=== PATIENT | male | born 1985 | race Two or more races ===

== ENCOUNTER 2016-05-18 15:55 | Inpatient (IN) | payer MEDICAID ==
[~2016-05-18] VITALS: Ht 170.2 cm; Wt 96.7 kg
[~2016-05-18 15:55] MED LIST: CHOL1TAB42 PO; DOCU-94 PO; FER325T PO; HYDR-3546 OR; HYDR25T PO; METH750T3 PO; PANC12002 PO
[2016-05-18 17:09] LABS: Basophils # (auto) 0 uL; Basophils % (auto) 0.2 % (0.0-2.0); Eosinophils # (auto) 0.1 uL; Eosinophils % (auto) 0.5 % (0.0-7.0); Hematocrit 49.2 % (41.0-53.0); Hemoglobin 16.8 g/dL (13.5-17.5); Lymphocytes # (auto) 1.5 uL; Lymphocytes % (auto) 12.2 % (10.0-50.0); Mean Corpuscular Hemoglobin 31.1 pg (28.0-32.0); Mean Corpuscular Hgb Conc. 34.2 g/dL (32.0-36.0); Mean Corpuscular Volume 90.9 fL (80.0-100.0); Mean Platelet Volume 9.2 fL (7.4-10.4); Monocytes # (auto) 0.7 uL; Monocytes % (auto) 5.9 % (0.0-12.0); Neutrophils # (auto) 10.2 uL; Neutrophils % (auto) 81.2 % (37.0-80.0); Platelet Count (auto) 312 10^3/uL (140-450); Red Cell Distribution Width 14.7 % (11.6-16.0); White Blood Cell 12.5 10^3/uL (4.4-10.8)
[2016-05-18 17:21] LABS: Albumin 4.3 g/dL (3.4-5.0); BUN/Creatinine Ratio 8.6; Calcium 9.8 mg/dL (8.5-10.1); Potassium 3.9 mmol/L (3.5-5.1); Total Protein 9.6 g/dL (6.4-8.2)
[2016-05-18 22:08] LABS: Urine Bilirubin Negative (Negative); Urine Blood Negative /uL (Negative); Urine Color Yellow (Yellow); Urine Glucose Normal (Normal); Urine Hyaline Cast FEW /lpf (0 - 2); Urine Ketone Negative (Negative); Urine Mucus FEW (None Seen); Urine Nitrite Negative (Negative); Urine RBC 3 /hpf (0 - 3); Urine pH 6.5 (5.0-8.0)
[2016-05-18 22:11] LABS: Amylase 111 U/L (25-115)
[2016-05-18] MEDS ORDERED: ONDANSETRON HCL 4 MG/2 ML VIAL IV ONE (22:15)
[2016-05-18] MEDS ORDERED: HYDROmorphone HCL 2 MG/ML VL IV ONE (22:15)
[2016-05-18] MEDS ORDERED: BANANA BAG KIT 1 EA IV ONE (23:01)
[2016-05-18] MEDS ORDERED: THIAMINE INJ 100 MG, MULTIPLE VITAMIN 10 ML, FOLIC ACID 1 MG, MAGNESIUM SULF SDV 50% 8 ... IV ONE ×5 (23:15)
[2016-05-19] VITALS (38 sets, daily range): BP systolic 97–173; BP diastolic 71–100
[2016-05-19] MEDS ORDERED: HYDROmorphone HCL 2 MG/ML VL IV ONE (00:45)
[2016-05-19] MEDS ORDERED: ONDANSETRON HCL 4 MG/2 ML VIAL IV ONE (00:45)
[2016-05-19] MEDS ORDERED: PROMETHAZINE HCL 25 MG/ML 1ML IV ONE (05:00)
[2016-05-19] MEDS ORDERED: MORPHINE SULFATE 4 MG/ML SYRG IV ONE (05:00)
[2016-05-19] MEDS ORDERED: SODIUM CHLORIDE 0.9% 1,000 ML IV SCH (05:26)
[2016-05-19] MEDS ORDERED: LACTULOSE 20Gm/30ML SOLN PO PRN (05:30)
[2016-05-19] MEDS ORDERED: MORPHINE SULF INJ 2 MG/ML SYRINGE 1ML IV PRN (05:30)
[2016-05-19 05:45] LABS: Basophils # (auto) 0.1 uL; Basophils % (auto) 0.5 % (0.0-2.0); Eosinophils # (auto) 0.2 uL; Eosinophils % (auto) 1.5 % (0.0-7.0); Hematocrit 46.4 % (41.0-53.0); Hemoglobin 15.8 g/dL (13.5-17.5); Lymphocytes # (auto) 1.5 uL; Lymphocytes % (auto) 14.6 % (10.0-50.0); Mean Corpuscular Hemoglobin 30.9 pg (28.0-32.0); Mean Corpuscular Hgb Conc. 33.9 g/dL (32.0-36.0); Mean Platelet Volume 8.5 fL (7.4-10.4); Monocytes # (auto) 0.5 uL; Monocytes % (auto) 5.1 % (0.0-12.0); Neutrophils # (auto) 7.8 uL; Neutrophils % (auto) 78.3 % (37.0-80.0); Platelet Count (auto) 262 10^3/uL (140-450); Red Cell Distribution Width 14.3 % (11.6-16.0); White Blood Cell 9.9 10^3/uL (4.4-10.8)
[2016-05-19 06:04] LABS: Albumin 3.8 g/dL (3.4-5.0); BUN/Creatinine Ratio 11.1; Calcium 8.8 mg/dL (8.5-10.1); Potassium 4.3 mmol/L (3.5-5.1)
[2016-05-19 06:07] LABS: Bilirubin, Total 1.2 mg/dL (0.2-1.0); Total Protein 8.4 g/dL (6.4-8.2)
[2016-05-19] MEDS: cefTRIAXone 1GM/50ML D5W 50 ML IV SCH ×2 (06:10→09:34)
[2016-05-19] MEDS ORDERED: HYDROmorphone HCL 2 MG/ML VL IV PRN (09:00)
[2016-05-19] MEDS: FAMOTIDINE (10MG/ML) 2ML VL IV SCH ×2 (09:34→22:23)
[2016-05-19] MEDS: ONDANSETRON HCL 4 MG/2 ML VIAL IV PRN ×2 (09:36→19:36)
[2016-05-19] MEDS: LACTATED RINGER'S 1,000 ML IV SCH ×2 (10:05→17:47)
[2016-05-19] MEDS: HYDROmorphone HCL 2 MG/ML VL IV PRN ×4 (12:58→22:55)
[2016-05-20] VITALS (10 sets, daily range): BP systolic 122–146; BP diastolic 71–98
[2016-05-20] MEDS: HYDROmorphone HCL 2 MG/ML VL IV PRN ×7 (02:06→22:05)
[2016-05-20] MEDS: LACTATED RINGER'S 1,000 ML IV SCH ×4 (02:23→20:10)
[2016-05-20 06:21] LABS: Basophils # (auto) 0 uL; Basophils % (auto) 0.4 % (0.0-2.0); Eosinophils # (auto) 0.4 uL; Eosinophils % (auto) 4.6 % (0.0-7.0); Hematocrit 40.9 % (41.0-53.0); Hemoglobin 13.9 g/dL (13.5-17.5); Lymphocytes # (auto) 1.9 uL; Lymphocytes % (auto) 20.7 % (10.0-50.0); Mean Corpuscular Hemoglobin 30.8 pg (28.0-32.0); Mean Corpuscular Hgb Conc. 34.1 g/dL (32.0-36.0); Mean Corpuscular Volume 90.5 fL (80.0-100.0); Mean Platelet Volume 8.6 fL (7.4-10.4); Monocytes # (auto) 0.5 uL; Monocytes % (auto) 5.2 % (0.0-12.0); Neutrophils # (auto) 6.5 uL; Neutrophils % (auto) 69.1 % (37.0-80.0); Platelet Count (auto) 198 10^3/uL (140-450); Red Cell Distribution Width 14.2 % (11.6-16.0); White Blood Cell 9.4 10^3/uL (4.4-10.8)
[2016-05-20 06:39] LABS: Albumin 3.4 g/dL (3.4-5.0); Calcium 8.6 mg/dL (8.5-10.1); Potassium 3.7 mmol/L (3.5-5.1)
[2016-05-20 06:45] LABS: BUN/Creatinine Ratio 10.7
[2016-05-20 06:46] LABS: Total Protein 7.5 g/dL (6.4-8.2)
[2016-05-20] MEDS: PANTOPRAZOLE SODIUM 80 MG in SODIUM CHL 0.9% 60 ML IV SCH ×2 (09:20→18:35)
[2016-05-20] MEDS: MUPIROCIN 2% OINT 22GM TOP SCH (20:19)
[2016-05-20] MEDS: ONDANSETRON HCL 4 MG/2 ML VIAL IV PRN (20:41)
[2016-05-21] VITALS (7 sets, daily range): BP systolic 119–159; BP diastolic 54–91
[2016-05-21] MEDS: LACTATED RINGER'S 1,000 ML IV SCH ×3 (01:27→15:08)
[2016-05-21] MEDS: HYDROmorphone HCL 2 MG/ML VL IV PRN ×7 (01:39→21:12)
[2016-05-21] MEDS: PANTOPRAZOLE SODIUM 80 MG in SODIUM CHL 0.9% 60 ML IV SCH ×2 (04:55→15:59)
[2016-05-21] MEDS: ONDANSETRON HCL 4 MG/2 ML VIAL IV PRN ×2 (05:16→21:05)
[2016-05-21 06:30] LABS: Albumin 3.4 g/dL (3.4-5.0); BUN/Creatinine Ratio 9.7; Calcium 8.5 mg/dL (8.5-10.1); Potassium 3.7 mmol/L (3.5-5.1)
[2016-05-21 06:32] LABS: Bilirubin, Total 1.3 mg/dL (0.2-1.0); Total Protein 7.7 g/dL (6.4-8.2)
[2016-05-21] MEDS: MUPIROCIN 2% OINT 22GM TOP SCH ×2 (11:37→21:04)
[2016-05-22] MEDS: LACTATED RINGER'S 1,000 ML IV SCH ×4 (00:55→18:15)
[2016-05-22] MEDS: PANTOPRAZOLE SODIUM 80 MG in SODIUM CHL 0.9% 60 ML IV SCH ×3 (00:56→20:45)
[2016-05-22] MEDS: HYDROmorphone HCL 2 MG/ML VL IV PRN ×7 (01:06→22:44)
[2016-05-22 05:24] VITALS: BP 131/79
[2016-05-22 06:43] LABS: Albumin 3.2 g/dL (3.4-5.0); BUN/Creatinine Ratio 9.5; Bilirubin, Total 0.9 mg/dL (0.2-1.0); Calcium 8.8 mg/dL (8.5-10.1); Potassium 3.6 mmol/L (3.5-5.1); Total Protein 7.7 g/dL (6.4-8.2)
[2016-05-22 07:30] VITALS: BP 119/87
[2016-05-22 09:00] VITALS: BP 129/53
[2016-05-22] MEDS: MUPIROCIN 2% OINT 22GM TOP SCH ×2 (10:46→22:43)
[2016-05-22 13:00] VITALS: BP 127/71
[2016-05-22 16:52] VITALS: BP 136/71
[2016-05-22] MEDS: ONDANSETRON HCL 4 MG/2 ML VIAL IV PRN (20:46)
[2016-05-22 22:00] VITALS: BP 133/89
[2016-05-23] MEDS: LACTATED RINGER'S 1,000 ML IV SCH ×2 (00:55→06:34)
[2016-05-23] MEDS: HYDROmorphone HCL 2 MG/ML VL IV PRN ×3 (02:57→11:52)
[2016-05-23] MEDS: PANTOPRAZOLE SODIUM 80 MG in SODIUM CHL 0.9% 60 ML IV SCH (06:33)
[2016-05-23 07:00] VITALS: BP 119/71
[2016-05-23 07:19] LABS: Albumin 3.4 g/dL (3.4-5.0); Bilirubin, Total 0.6 mg/dL (0.2-1.0); Calcium 9.2 mg/dL (8.5-10.1); Potassium 3.5 mmol/L (3.5-5.1); Total Protein 8.2 g/dL (6.4-8.2)
[2016-05-23 08:00] VITALS: BP 119/71
[2016-05-23] MEDS: MUPIROCIN 2% OINT 22GM TOP SCH (10:41)
[2016-05-23 12:15] VITALS: BP 122/76
[2016-05-23 13:06] VITALS: BP 122/76
[2016-05-23 13:40] VITALS: BP 122/76
== END 2016-05-23 13:40 | disposition home or self-care (01) | DRG 282 ==
LOC: ER 16:01 → TELE 16:02 → ICU WEST 05-19 07:59 → TELE-WESTW 05-20 01:56
PROVIDERS: ADMIT Family Medicine; ATTEND Internal Medicine
DX: K85.20 Alcohol induced acute pancreatitis without necrosis or infection (principal); K76.0 Fatty (change of) liver, not elsewhere classified; F10.10 Alcohol abuse, uncomplicated; K29.20 Alcoholic gastritis without bleeding; E86.0 Dehydration; B95.62 Methicillin resistant Staphylococcus aureus infection as the cause of diseases classified elsewhere; I10 Essential (primary) hypertension; F17.210 Nicotine dependence, cigarettes, uncomplicated; Z83.3 Family history of diabetes mellitus; Z98.890 Other specified postprocedural states; Z87.19 Personal history of other diseases of the digestive system; Z71.41 Alcohol abuse counseling and surveillance of alcoholic
CPT/HCPCS: 36415; 74176; 80053; 80320; 81001; 82150; 83690; 85025; 87081; 96361; 96365; 96366; 96375; 96376; C9113; J0696; J2405; J3490

== ENCOUNTER 2017-05-14 00:24 | Inpatient (IN) | payer MEDICAID ==
[~2017-05-14] VITALS: Ht 170.2 cm; Wt 97.0 kg
[2017-05-14 02:16] LABS: Basophils # (auto) 0.3 uL; Basophils % (auto) 2.2 % (0.0-2.0); Eosinophils # (auto) 0.1 uL; Eosinophils % (auto) 1.1 % (0.0-7.0); Hematocrit 46.8 % (41.0-53.0); Lymphocytes # (auto) 2.4 uL; Lymphocytes % (auto) 21.2 % (10.0-50.0); Mean Corpuscular Hemoglobin 31.4 pg (28.0-32.0); Mean Corpuscular Hgb Conc. 34.2 g/dL (32.0-36.0); Monocytes # (auto) 0.7 uL; Monocytes % (auto) 6.5 % (0.0-12.0); Neutrophils # (auto) 7.8 uL; Nucleated Red Blood Cells % 0.2 %; Platelet Count (auto) 193 10^3/uL (140-450); Red Blood Cells 5.08 10^6/uL (4.5-5.90); White Blood Cell 11.3 10^3/uL (4.4-10.8)
[2017-05-14 02:41] LABS: Albumin 4.1 g/dL (3.4-5.0); BUN/Creatinine Ratio 6.9; Potassium 3.5 mmol/L (3.5-5.1)
[2017-05-14 02:44] LABS: Bilirubin, Total 0.7 mg/dL (0.2-1.0); Total Protein 9.2 g/dL (6.4-8.2)
[2017-05-14 07:00] LABS: Urine Bacteria NONE SEEN /hpf (None Seen); Urine Blood Negative /uL (Negative); Urine Mucus FEW (None Seen); Urine Specific Gravity 1.025 (1.001-1.035); Urine WBC 1 /hpf (0 - 3)
[2017-05-14] MEDS ORDERED: SODIUM CHLORIDE 0.9% 1,000 ML IVB ONE (08:58)
[2017-05-14] MEDS ORDERED: NALBUPHINE HCL 10 MG/1ml INJECTION IV ONE (09:00)
[2017-05-14] MEDS: PROMETHAZINE HCL 25 MG/ML 1ML IV PRN ×3 (09:19→21:30)
[2017-05-14 09:49] LABS: INR 1.05 (0.9-1.15); Partial Thromboplastin Time 29.1 sec (22.64-33.71); Prothrombin Time 11.4 sec (9.37-12.3)
[2017-05-14] MEDS ORDERED: ONDANSETRON HCL 4 MG/2 ML VIAL IV ONE (12:30)
[2017-05-14] MEDS ORDERED: NITROGLYCERIN 0.4 MG SL TAB SL PRN (12:45)
[2017-05-14] MEDS ORDERED: DOCUSATE SOD 100 MG CAP PO PRN (12:45)
[2017-05-14] MEDS ORDERED: ACETAMINOPHEN 325 MG TAB PO PRN (12:45)
[2017-05-14] MEDS ORDERED: TEMAZEPAM 15 MG CAP PO PRN (12:45)
[2017-05-14] MEDS ORDERED: cloNIDine HCL 0.1 MG TAB PO PRN (12:45)
[2017-05-14] MEDS ORDERED: FAMOTIDINE (10MG/ML) 2ML VL IV ONE (12:45)
[2017-05-14] MEDS ORDERED: PANTOPRAZOLE 40 MG/10 ML VIAL IV ONE (12:45)
[2017-05-14] MEDS ORDERED: MORPHINE SULFATE 4 MG/ML SYR/VIAL IV PRN (12:45)
[2017-05-14] MEDS: SODIUM CHLORIDE 0.9% 1,000 ML IV SCH ×3 (12:50→21:30)
[2017-05-14] MEDS ORDERED: cefTRIAXone 1GM/10ml IVPUSH 10 ML IV ONE (13:00)
[2017-05-14] MEDS: MORPHINE SULFATE 4 MG/ML SYR/VIAL IV PRN ×3 (13:02→21:30)
[2017-05-14 13:21] LABS: Amphetamine Screen, Urine NEGATIVE (NEGATIVE); Barbiturate Scree,Urine NEGATIVE (NEGATIVE); Benzodiazephine Screen, Urine NEGATIVE (NEGATIVE); Cannabinoid Screen, Urine NEGATIVE (NEGATIVE); Cocaine Screen, Urine NEGATIVE (NEGATIVE); Opiate Scree,Urine NEGATIVE (NEGATIVE); Phencyclidine Screen, Urine NEGATIVE (NEGATIVE)
[2017-05-14 13:31] LABS: Alcohol, Urine < 3.0 mg/dL (0-5)
[2017-05-14] MEDS: metroNIDAZOLE 500MG/100ML 100 ML IV SCH ×2 (14:15→21:28)
[2017-05-14] MEDS ORDERED: ASCORBIC ACID 500 MG TAB PO SCH (22:00)
[2017-05-14] MEDS: HYDROcodone-ACET 5/325MG TAB PO PRN (23:45)
[2017-05-15] MEDS: MORPHINE SULFATE 4 MG/ML SYR/VIAL IV PRN ×6 (00:45→22:37)
[2017-05-15 04:30] VITALS: BP 143/95
[2017-05-15] MEDS: metroNIDAZOLE 500MG/100ML 100 ML IV SCH (05:04)
[2017-05-15 05:46] LABS: Basophils # (auto) 0 uL; Basophils % (auto) 0.4 % (0.0-2.0); Eosinophils # (auto) 0.3 uL; Eosinophils % (auto) 3.7 % (0.0-7.0); Hematocrit 41.5 % (41.0-53.0); Hemoglobin 14.5 g/dL (13.5-17.5); Lymphocytes # (auto) 1.7 uL; Lymphocytes % (auto) 24.5 % (10.0-50.0); Mean Corpuscular Hemoglobin 32.2 pg (28.0-32.0); Mean Corpuscular Volume 92.2 fL (80.0-100.0); Monocytes # (auto) 0.4 uL; Monocytes % (auto) 5.4 % (0.0-12.0); Neutrophils # (auto) 4.6 uL; Nucleated Red Blood Cells % 0.1 %; Platelet Count (auto) 134 10^3/uL (140-450); Red Cell Distribution Width 14.1 % (11.8-14.3); White Blood Cell 6.9 10^3/uL (4.4-10.8)
[2017-05-15 06:10] LABS: Albumin 3.9 g/dL (3.4-5.0); BUN/Creatinine Ratio 7.1; Bilirubin, Total 1.2 mg/dL (0.2-1.0); Calcium 8.6 mg/dL (8.5-10.1); Potassium 3.6 mmol/L (3.5-5.1); Total Protein 8.6 g/dL (6.4-8.2)
[2017-05-15] MEDS: HYDROcodone-ACET 5/325MG TAB PO PRN ×2 (08:20→20:52)
[2017-05-15 09:00] VITALS: BP 148/76
[2017-05-15] MEDS ORDERED: cefTRIAXone 1GM/10ml IVPUSH 10 ML IV SCH (09:00)
[2017-05-15] MEDS: LACTATED RINGER'S 1,000 ML IV SCH ×3 (09:45→23:05)
[2017-05-15] MEDS: PANTOPRAZOLE 40 MG/10 ML VIAL IV SCH (09:52)
[2017-05-15] MEDS: ONDANSETRON HCL 4 MG/2 ML VIAL IV PRN ×2 (09:53→22:37)
[2017-05-15] MEDS ORDERED: MULTIPLE VITAMIN TAB PO SCH (10:00)
[2017-05-15] MEDS ORDERED: FAMOTIDINE (10MG/ML) 2ML VL IV SCH (10:00)
[2017-05-15] MEDS: ZINC SULFATE 220 MG CAP PO SCH (10:00)
[2017-05-15 13:00] VITALS: BP 151/92
[2017-05-15] MEDS ORDERED: IOHEXOL 300 MG/ML 100ML BOTTLE IJ ONE (16:59)
[2017-05-15 17:00] VITALS: BP 156/100
[2017-05-15 21:32] VITALS: BP 152/95
[2017-05-16] MEDS: MORPHINE SULFATE 4 MG/ML SYR/VIAL IV PRN ×5 (03:00→21:17)
[2017-05-16] MEDS: ONDANSETRON HCL 4 MG/2 ML VIAL IV PRN ×3 (03:01→21:17)
[2017-05-16 04:46] VITALS: BP 147/85
[2017-05-16 05:58] LABS: Basophils # (auto) 0.1 uL; Basophils % (auto) 0.7 % (0.0-2.0); Eosinophils # (auto) 0.2 uL; Eosinophils % (auto) 3.3 % (0.0-7.0); Hemoglobin 13.9 g/dL (13.5-17.5); Lymphocytes # (auto) 2.2 uL; Mean Corpuscular Hemoglobin 32.5 pg (28.0-32.0); Mean Corpuscular Hgb Conc. 34.9 g/dL (32.0-36.0); Monocytes # (auto) 0.4 uL; Monocytes % (auto) 4.9 % (0.0-12.0); Neutrophils # (auto) 4.6 uL; Neutrophils % (auto) 62.1 % (37.0-80.0); Nucleated Red Blood Cells % 0.1 %; Platelet Count (auto) 115 10^3/uL (140-450); Red Blood Cells 4.29 10^6/uL (4.5-5.90); Red Cell Distribution Width 13.8 % (11.8-14.3); White Blood Cell 7.4 10^3/uL (4.4-10.8)
[2017-05-16] MEDS: LACTATED RINGER'S 1,000 ML IV SCH ×3 (06:13→20:35)
[2017-05-16 06:17] LABS: BUN/Creatinine Ratio 6.8; Calcium 8.8 mg/dL (8.5-10.1); Potassium 3.6 mmol/L (3.5-5.1)
[2017-05-16] MEDS: HYDROcodone-ACET 5/325MG TAB PO PRN ×2 (06:19→20:37)
[2017-05-16 08:19] VITALS: BP 145/92
[2017-05-16] MEDS: PANTOPRAZOLE 40 MG/10 ML VIAL IV SCH (10:00)
[2017-05-16] MEDS: ZINC SULFATE 220 MG CAP PO SCH (10:00)
[2017-05-16 12:19] VITALS: BP 138/93
[2017-05-16 12:56] LABS: Amylase 53 U/L (25-115); Lipase 472 U/L (73-393)
[2017-05-16 21:50] VITALS: BP 136/92
[2017-05-17] MEDS: MORPHINE SULFATE 4 MG/ML SYR/VIAL IV PRN ×5 (01:31→22:11)
[2017-05-17] MEDS: ONDANSETRON HCL 4 MG/2 ML VIAL IV PRN ×2 (01:31→05:55)
[2017-05-17 05:25] VITALS: BP 119/76
[2017-05-17] MEDS: LACTATED RINGER'S 1,000 ML IV SCH ×4 (05:47→20:54)
[2017-05-17 06:34] LABS: Potassium 4.1 mmol/L (3.5-5.1)
[2017-05-17 06:41] LABS: Magnesium 2.1 mg/dL (1.6-2.6)
[2017-05-17 08:00] VITALS: BP 104/56
[2017-05-17] MEDS: HYDROcodone-ACET 5/325MG TAB PO PRN ×2 (08:31→20:54)
[2017-05-17 09:00] VITALS: BP 104/56
[2017-05-17] MEDS: ZINC SULFATE 220 MG CAP PO SCH (10:53)
[2017-05-17] MEDS: PANTOPRAZOLE 40 MG/10 ML VIAL IV SCH (10:53)
[2017-05-17 12:08] VITALS: BP 134/90
[2017-05-17 16:02] VITALS: BP 133/84
[2017-05-17 22:00] VITALS: BP 125/84
[2017-05-18] MEDS: MORPHINE SULFATE 4 MG/ML SYR/VIAL IV PRN ×5 (03:03→22:41)
[2017-05-18] MEDS: LACTATED RINGER'S 1,000 ML IV SCH ×3 (04:25→16:13)
[2017-05-18] MEDS: HYDROcodone-ACET 5/325MG TAB PO PRN ×2 (05:25→17:31)
[2017-05-18 05:38] VITALS: BP 128/90
[2017-05-18 08:00] VITALS: BP 128/80
[2017-05-18 08:18] VITALS: BP 128/80
[2017-05-18] MEDS: ZINC SULFATE 220 MG CAP PO SCH (10:52)
[2017-05-18] MEDS: PANTOPRAZOLE 40 MG/10 ML VIAL IV SCH (10:52)
[2017-05-18 11:49] VITALS: BP 138/60
[2017-05-18 16:50] VITALS: BP 108/65
[2017-05-18 21:28] VITALS: BP 128/84
[2017-05-19] MEDS: MORPHINE SULFATE 4 MG/ML SYR/VIAL IV PRN ×3 (03:24→12:10)
[2017-05-19 05:00] VITALS: BP 116/78
[2017-05-19] MEDS: LACTATED RINGER'S 1,000 ML IV SCH (05:02)
[2017-05-19 07:16] LABS: Basophils # (auto) 0 uL; Basophils % (auto) 0.7 % (0.0-2.0); Eosinophils # (auto) 0.2 uL; Eosinophils % (auto) 4.6 % (0.0-7.0); Hematocrit 40.5 % (41.0-53.0); Hemoglobin 13.8 g/dL (13.5-17.5); Lymphocytes # (auto) 1.9 uL; Lymphocytes % (auto) 35.6 % (10.0-50.0); Mean Corpuscular Hemoglobin 31.7 pg (28.0-32.0); Monocytes # (auto) 0.4 uL; Monocytes % (auto) 7.6 % (0.0-12.0); Neutrophils # (auto) 2.7 uL; Neutrophils % (auto) 51.5 % (37.0-80.0); Nucleated Red Blood Cells % 0.1 %; Platelet Count (auto) 126 10^3/uL (140-450); Red Blood Cells 4.35 10^6/uL (4.5-5.90); Red Cell Distribution Width 13.8 % (11.8-14.3); White Blood Cell 5.3 10^3/uL (4.4-10.8)
[2017-05-19] MEDS: HYDROcodone-ACET 5/325MG TAB PO PRN ×3 (07:37→14:10)
[2017-05-19 08:18] VITALS: BP 127/73
[2017-05-19] MEDS: PANTOPRAZOLE 40 MG/10 ML VIAL IV SCH (09:55)
[2017-05-19] MEDS: ZINC SULFATE 220 MG CAP PO SCH (09:55)
[2017-05-19] MEDS ORDERED: PANT40TA2 PO (10:17)
[2017-05-19 11:51] VITALS: BP 128/87
== END 2017-05-19 14:00 | disposition home or self-care (01) | DRG 241 ==
LOC: ER 00:24 → TELE 00:25 → TELE-EAST 19:57
PROVIDERS: ADMIT Internal Medicine; ATTEND Internal Medicine
DX: K29.20 Alcoholic gastritis without bleeding (principal); K85.20 Alcohol induced acute pancreatitis without necrosis or infection; K76.0 Fatty (change of) liver, not elsewhere classified; M87.9 Osteonecrosis, unspecified; K86.0 Alcohol-induced chronic pancreatitis; M87.852 Other osteonecrosis, left femur; M87.851 Other osteonecrosis, right femur; I10 Essential (primary) hypertension; F10.10 Alcohol abuse, uncomplicated; E86.0 Dehydration; F17.210 Nicotine dependence, cigarettes, uncomplicated; Z83.3 Family history of diabetes mellitus; Z71.41 Alcohol abuse counseling and surveillance of alcoholic; Z79.899 Other long term (current) drug therapy; Z90.49 Acquired absence of other specified parts of digestive tract
CPT/HCPCS: 36415; 71046; 74176; 74177; 80048; 80053; 80307; 81001; 82150; 83605; 83690; 83735; 84132; 84443; 85025; 85610; 85730; 87040; 87081; 87086; 93005; 96374; 96375; C9113; J2405; J3490

== ENCOUNTER 2017-08-06 16:49 | Inpatient (IN) | payer MEDICAID, OTHER ==
[~2017-08-06] VITALS: Ht 170.2 cm; Wt 93.8 kg
[~2017-08-06 16:49] MED LIST changes: -CHOL1TAB42 PO; -DOCU-94 PO; -FER325T PO; -HYDR-3546 OR; -HYDR25T PO; -METH750T3 PO; -PANC12002 PO; +PANT40TA2 PO
[2017-08-06 17:43] LABS: Basophils # (auto) 0.1 uL; Basophils % (auto) 0.5 % (0.0-2.0); Eosinophils # (auto) 0 uL; Eosinophils % (auto) 0.2 % (0.0-7.0); Hemoglobin 15.7 g/dL (13.5-17.5); Lymphocytes # (auto) 1.1 uL; Lymphocytes % (auto) 10.3 % (10.0-50.0); Mean Corpuscular Hemoglobin 31.6 pg (28.0-32.0); Mean Corpuscular Hgb Conc. 34.3 g/dL (32.0-36.0); Mean Corpuscular Volume 92.1 fL (80.0-100.0); Monocytes # (auto) 0.4 uL; Monocytes % (auto) 3.4 % (0.0-12.0); Neutrophils # (auto) 9.2 uL; Neutrophils % (auto) 85.6 % (37.0-80.0); Nucleated Red Blood Cells % 0.4 %; Platelet Count (auto) 269 10^3/uL (140-450); Red Blood Cells 4.99 10^6/uL (4.5-5.90); Red Cell Distribution Width 14.7 % (11.8-14.3); White Blood Cell 10.8 10^3/uL (4.4-10.8)
[2017-08-06 18:13] LABS: Albumin 4.4 g/dL (3.4-5.0); BUN/Creatinine Ratio 6.4; Bilirubin, Total 0.6 mg/dL (0.2-1.0); Total Protein 9.4 g/dL (6.4-8.2)
[2017-08-06] MEDS ORDERED: KETOROLAC TROMETH 30 MG/ML 1ML VIAL IV ONE (18:15)
[2017-08-06] MEDS ORDERED: ONDANSETRON HCL 4 MG/2 ML VIAL IV ONE (18:15)
[2017-08-06 18:22] LABS: Urine Bacteria NONE SEEN /hpf (None Seen); Urine Blood Negative /uL (Negative); Urine Specific Gravity 1.016 (1.001-1.035); Urine WBC 1 /hpf (0 - 3)
[2017-08-06] MEDS ORDERED: SODIUM CHLORIDE 0.9% 1,000 ML IV ONE (19:00)
[2017-08-06] MEDS ORDERED: TEMAZEPAM 15 MG CAP PO PRN (21:00)
[2017-08-06] MEDS ORDERED: SODIUM CHLORIDE 0.9% 500 ML IV ONE (21:00)
[2017-08-06] MEDS ORDERED: cloNIDine HCL 0.1 MG TAB PO PRN (21:00)
[2017-08-06] MEDS ORDERED: PANTOPRAZOLE 40 MG/10 ML VIAL IV ONE (21:00)
[2017-08-06] MEDS ORDERED: ACETAMINOPHEN 325 MG TAB PO PRN (21:00)
[2017-08-06] MEDS ORDERED: HYDROcodone-ACET 5/325MG TAB PO PRN (21:00)
[2017-08-06] MEDS: SODIUM CHLORIDE 0.9% 1,000 ML IV SCH (21:32)
[2017-08-06 21:45] VITALS: BP 135/75
[2017-08-06] MEDS: KETOROLAC TROMETH 30 MG/ML 1ML VIAL IV PRN (23:39)
[2017-08-07 04:36] VITALS: BP 127/78
[2017-08-07] MEDS: KETOROLAC TROMETH 30 MG/ML 1ML VIAL IV PRN (06:08)
[2017-08-07] MEDS: SODIUM CHLORIDE 0.9% 1,000 ML IV SCH (06:43)
[2017-08-07 07:23] LABS: Basophils # (auto) 0.1 uL; Basophils % (auto) 0.8 % (0.0-2.0); Eosinophils # (auto) 0.3 uL; Eosinophils % (auto) 3.7 % (0.0-7.0); Hemoglobin 14.2 g/dL (13.5-17.5); Lymphocytes # (auto) 1.7 uL; Lymphocytes % (auto) 22.6 % (10.0-50.0); Mean Corpuscular Hgb Conc. 34.5 g/dL (32.0-36.0); Mean Corpuscular Volume 92.7 fL (80.0-100.0); Monocytes # (auto) 0.5 uL; Monocytes % (auto) 6.1 % (0.0-12.0); Neutrophils # (auto) 5.1 uL; Neutrophils % (auto) 66.8 % (37.0-80.0); Nucleated Red Blood Cells % 0.2 %; Platelet Count (auto) 187 10^3/uL (140-450); Red Blood Cells 4.42 10^6/uL (4.5-5.90); Red Cell Distribution Width 14.4 % (11.8-14.3); White Blood Cell 7.7 10^3/uL (4.4-10.8)
[2017-08-07] MEDS ORDERED: LIDOCAINE 2%HCL (LOCAL ANESTH.) INJ 20ML MDV ONE (07:34)
[2017-08-07 07:51] LABS: Albumin 3.5 g/dL (3.4-5.0); BUN/Creatinine Ratio 11.5; Calcium 8.2 mg/dL (8.5-10.1); Potassium 3.7 mmol/L (3.5-5.1); Total Protein 7.6 g/dL (6.4-8.2)
[2017-08-07] MEDS ORDERED: HYDROmorphone HCL 2 MG/ML VL IV PRN (08:30)
[2017-08-07 09:00] VITALS: BP 122/89
[2017-08-07] MEDS: HYDROcodone-ACET 10/325MG TAB PO PRN ×4 (09:56→23:10)
[2017-08-07] MEDS: PANTOPRAZOLE 40 MG/10 ML VIAL IV SCH (09:56)
[2017-08-07] MEDS: ENOXAPARIN SOD 40 MG/0.4 ML SYRINGE SC SCH (09:56)
[2017-08-07] MEDS: HYDROmorphone HCL 2 MG/ML VL IV PRN ×4 (11:31→21:34)
[2017-08-07 13:00] VITALS: BP 127/89
[2017-08-07] MEDS: ONDANSETRON HCL 4 MG/2 ML VIAL IV PRN ×2 (14:22→21:34)
[2017-08-07 17:00] VITALS: BP 136/80
[2017-08-07] MEDS ORDERED: ONDA4TAB5 PO (17:18)
[2017-08-07] MEDS: LACTATED RINGER'S 1,000 ML IV SCH ×2 (18:30→21:35)
[2017-08-07 20:00] VITALS: BP 142/84
[2017-08-07 22:00] VITALS: BP 142/84
[2017-08-08] MEDS: HYDROmorphone HCL 2 MG/ML VL IV PRN ×6 (01:39→20:23)
[2017-08-08] MEDS: ONDANSETRON HCL 4 MG/2 ML VIAL IV PRN ×5 (01:46→20:24)
[2017-08-08] MEDS: LACTATED RINGER'S 1,000 ML IV SCH ×4 (04:51→21:47)
[2017-08-08 05:30] VITALS: BP 114/89
[2017-08-08] MEDS: HYDROcodone-ACET 10/325MG TAB PO PRN (06:49)
[2017-08-08 07:30] LABS: Potassium 3.6 mmol/L (3.5-5.1)
[2017-08-08 07:34] LABS: Albumin 3.5 g/dL (3.4-5.0); BUN/Creatinine Ratio 6.8; Calcium 8.8 mg/dL (8.5-10.1)
[2017-08-08 07:37] LABS: Bilirubin, Total 1.1 mg/dL (0.2-1.0)
[2017-08-08 08:30] VITALS: BP 137/97
[2017-08-08] MEDS: ENOXAPARIN SOD 40 MG/0.4 ML SYRINGE SC SCH (10:00)
[2017-08-08] MEDS: PANTOPRAZOLE 40 MG/10 ML VIAL IV SCH (11:19)
[2017-08-08 12:44] VITALS: BP 140/92
[2017-08-08 17:19] VITALS: BP 153/86
[2017-08-08 22:00] VITALS: BP 144/78
[2017-08-09] MEDS: HYDROmorphone HCL 2 MG/ML VL IV PRN ×6 (00:36→21:32)
[2017-08-09] MEDS: ONDANSETRON HCL 4 MG/2 ML VIAL IV PRN ×6 (00:37→21:33)
[2017-08-09] MEDS: LACTATED RINGER'S 1,000 ML IV SCH ×3 (03:28→15:34)
[2017-08-09 05:00] VITALS: BP 149/94
[2017-08-09 07:03] LABS: Albumin 3.2 g/dL (3.4-5.0); BUN/Creatinine Ratio 5.7; Calcium 8.8 mg/dL (8.5-10.1); Potassium 3.5 mmol/L (3.5-5.1)
[2017-08-09 07:06] LABS: Bilirubin, Total 1.5 mg/dL (0.2-1.0)
[2017-08-09 08:54] VITALS: BP 136/85
[2017-08-09] MEDS: PANTOPRAZOLE 40 MG/10 ML VIAL IV SCH (09:04)
[2017-08-09] MEDS: ENOXAPARIN SOD 40 MG/0.4 ML SYRINGE SC SCH (09:06)
[2017-08-09 12:54] VITALS: BP 121/73
[2017-08-09] MEDS: HYDROcodone-ACET 10/325MG TAB PO PRN ×2 (15:33→20:09)
[2017-08-09 17:03] VITALS: BP 124/84
[2017-08-09 22:00] VITALS: BP 133/95
[2017-08-10] MEDS: HYDROcodone-ACET 10/325MG TAB PO PRN ×3 (00:13→16:51)
[2017-08-10] MEDS: LACTATED RINGER'S 1,000 ML IV SCH ×4 (02:10→21:42)
[2017-08-10] MEDS: HYDROmorphone HCL 2 MG/ML VL IV PRN ×6 (02:15→22:54)
[2017-08-10] MEDS: ONDANSETRON HCL 4 MG/2 ML VIAL IV PRN ×6 (02:15→22:54)
[2017-08-10 05:42] VITALS: BP 132/83
[2017-08-10 06:37] LABS: Albumin 3.3 g/dL (3.4-5.0); Potassium 3.7 mmol/L (3.5-5.1)
[2017-08-10 06:39] LABS: BUN/Creatinine Ratio 6.4
[2017-08-10 06:42] LABS: Bilirubin, Total 1.3 mg/dL (0.2-1.0); Total Protein 7.9 g/dL (6.4-8.2)
[2017-08-10 09:00] VITALS: BP 124/77
[2017-08-10] MEDS: PANTOPRAZOLE 40 MG/10 ML VIAL IV SCH (09:30)
[2017-08-10] MEDS: ENOXAPARIN SOD 40 MG/0.4 ML SYRINGE SC SCH (09:30)
[2017-08-10 13:00] VITALS: BP 121/66
[2017-08-10 17:00] VITALS: BP 123/76
[2017-08-10 23:00] VITALS: BP 129/80
[2017-08-11] MEDS: HYDROcodone-ACET 10/325MG TAB PO PRN ×3 (00:52→13:52)
[2017-08-11] MEDS: ONDANSETRON HCL 4 MG/2 ML VIAL IV PRN ×5 (02:57→20:16)
[2017-08-11] MEDS: HYDROmorphone HCL 2 MG/ML VL IV PRN ×5 (02:57→20:16)
[2017-08-11] MEDS: LACTATED RINGER'S 1,000 ML IV SCH ×4 (04:47→23:54)
[2017-08-11 05:36] VITALS: BP 135/74
[2017-08-11 06:33] LABS: Potassium 3.5 mmol/L (3.5-5.1)
[2017-08-11 06:47] LABS: Albumin 3.4 g/dL (3.4-5.0); BUN/Creatinine Ratio 6.8; Bilirubin, Total 0.8 mg/dL (0.2-1.0); Total Protein 8.1 g/dL (6.4-8.2)
[2017-08-11 09:00] VITALS: BP 142/93
[2017-08-11] MEDS: ENOXAPARIN SOD 40 MG/0.4 ML SYRINGE SC SCH (09:23)
[2017-08-11] MEDS: PANTOPRAZOLE 40 MG/10 ML VIAL IV SCH (09:23)
[2017-08-11 13:00] VITALS: BP 131/91
[2017-08-11 17:00] VITALS: BP 159/89
[2017-08-11 22:00] VITALS: BP 133/83
[2017-08-12] MEDS: HYDROmorphone HCL 2 MG/ML VL IV PRN ×3 (00:36→09:18)
[2017-08-12] MEDS: ONDANSETRON HCL 4 MG/2 ML VIAL IV PRN ×3 (00:36→09:18)
[2017-08-12 05:00] VITALS: BP 127/87
[2017-08-12 07:14] LABS: Potassium 3.6 mmol/L (3.5-5.1)
[2017-08-12 07:27] LABS: Albumin 3.4 g/dL (3.4-5.0); BUN/Creatinine Ratio 6.5; Calcium 9.1 mg/dL (8.5-10.1)
[2017-08-12 07:29] LABS: Bilirubin, Total 0.7 mg/dL (0.2-1.0)
[2017-08-12 09:00] VITALS: BP 128/71
[2017-08-12] MEDS: ENOXAPARIN SOD 40 MG/0.4 ML SYRINGE SC SCH (09:18)
[2017-08-12] MEDS: PANTOPRAZOLE 40 MG/10 ML VIAL IV SCH (09:18)
[2017-08-12] MEDS: LACTATED RINGER'S 1,000 ML IV SCH (09:19)
== END 2017-08-12 13:13 | disposition home or self-care (01) | DRG 282 ==
LOC: ER 16:49 → OVERFLOW 16:50 → WEST WING 21:35
PROVIDERS: ADMIT Nurse Practitioner; ATTEND Internal Medicine
DX: K85.20 Alcohol induced acute pancreatitis without necrosis or infection (principal); K76.0 Fatty (change of) liver, not elsewhere classified; M87.851 Other osteonecrosis, right femur; F17.210 Nicotine dependence, cigarettes, uncomplicated; K70.9 Alcoholic liver disease, unspecified; K86.1 Other chronic pancreatitis; I10 Essential (primary) hypertension; F10.10 Alcohol abuse, uncomplicated; M87.852 Other osteonecrosis, left femur; M19.90 Unspecified osteoarthritis, unspecified site; E66.9 Obesity, unspecified; Z91.19 Patient's noncompliance with other medical treatment and regimen; Z82.49 Family history of ischemic heart disease and other diseases of the circulatory system; Z83.3 Family history of diabetes mellitus; Z90.49 Acquired absence of other specified parts of digestive tract; Z84.89 Family history of other specified conditions; Z68.32 Body mass index [BMI] 32.0-32.9, adult
CPT/HCPCS: 36415; 74176; 80053; 81001; 83690; 85025; 93005; 96374; 96375; C9113; J1885; J2405

== ENCOUNTER 2019-04-01 23:34 | Inpatient (IN) | payer MEDICAID ==
[~2019-04-01] VITALS: Ht 170.2 cm; Wt 93.4 kg
[2019-04-02 00:12] LABS: Urine Bacteria NONE SEEN /hpf (None Seen); Urine Blood Negative /uL (Negative); Urine Hyaline Cast FEW /lpf (0 - 2); Urine Specific Gravity 1.014 (1.001-1.035); Urine WBC <1 /hpf (0 - 3)
[2019-04-02 00:14] LABS: Basophils # (auto) 0.1 uL; Basophils % (auto) 0.8 % (0.0-2.0); Eosinophils # (auto) 0 uL; Eosinophils % (auto) 0.5 % (0.0-7.0); Hematocrit 44.6 % (41.0-53.0); Hemoglobin 15.4 g/dL (13.5-17.5); Lymphocytes # (auto) 1.9 uL; Lymphocytes % (auto) 20.4 % (10.0-50.0); Mean Corpuscular Hemoglobin 33.5 pg (28.0-32.0); Mean Corpuscular Hgb Conc. 34.6 g/dL (32.0-36.0); Mean Corpuscular Volume 96.8 fL (80.0-100.0); Monocytes # (auto) 0.7 uL; Monocytes % (auto) 7.5 % (0.0-12.0); Neutrophils # (auto) 6.4 uL; Neutrophils % (auto) 70.8 % (37.0-80.0); Nucleated Red Blood Cells % 0.1 %; Platelet Count (auto) 244 10^3/uL (140-450); Red Blood Cells 4.61 10^6/uL (4.5-5.90); Red Cell Distribution Width 14.2 % (11.8-14.3); White Blood Cell 9.1 10^3/uL (4.4-10.8)
[2019-04-02] MEDS ORDERED: ONDANSETRON HCL 4 MG/2 ML VIAL ONE (00:25)
[2019-04-02] MEDS ORDERED: ONDANSETRON HCL 4 MG/2 ML VIAL IV ONE (00:30)
[2019-04-02] MEDS ORDERED: SODIUM CHLORIDE 0.9% 1,000 ML IV ONE (00:30)
[2019-04-02 00:31] LABS: Albumin 4.1 g/dL (3.4-5.0); BUN/Creatinine Ratio 5.2; Calcium 9.4 mg/dL (8.5-10.1); Potassium 4.3 mmol/L (3.5-5.1)
[2019-04-02 00:34] LABS: Bilirubin, Total 0.6 mg/dL (0.2-1.0); Total Protein 8.8 g/dL (6.4-8.2)
[2019-04-02] MEDS ORDERED: MORPHINE SULF INJ 2 MG/ML SYRINGE 1ML IV ONE (04:45)
[2019-04-02] MEDS ORDERED: TEMAZEPAM 15 MG CAP PO PRN (05:30)
[2019-04-02] MEDS ORDERED: SODIUM CHLORIDE 0.9% 1,000 ML IV SCH (05:30)
[2019-04-02] MEDS ORDERED: ACETAMINOPHEN 325 MG TAB PO PRN (05:30)
[2019-04-02] MEDS ORDERED: chlordiazePOXIDE HCL 25 MG CAP PO PRN (05:30)
[2019-04-02] MEDS: PANTOPRAZOLE 40 MG/10 ML VIAL INJ IV SCH (10:04)
[2019-04-02] MEDS: MORPHINE SULFATE 4 MG/ML SYR/VIAL IV PRN ×4 (10:09→22:42)
[2019-04-02] MEDS: ONDANSETRON HCL 4 MG/2 ML VIAL IV PRN ×3 (10:09→18:06)
[2019-04-02] MEDS: FOLIC ACID 1 MG, MULTIPLE VITAMIN 10 ML, MAGNESIUM SULF SDV 50% 8 MEQ, THIAMINE INJ 100... INJ SCH ×5 (12:01)
[2019-04-02 13:00] VITALS: BP 131/82
[2019-04-02] MEDS: HYDROcodone-ACET 5/325MG TAB PO PRN ×2 (14:48→20:19)
[2019-04-02 17:00] VITALS: BP 133/78
[2019-04-02] MEDS: LACTATED RINGER'S 1,000 ML IV SCH (20:20)
[2019-04-02 22:00] VITALS: BP 128/83
[2019-04-03] MEDS: ONDANSETRON HCL 4 MG/2 ML VIAL IV PRN ×3 (01:07→21:57)
[2019-04-03] MEDS: HYDROcodone-ACET 5/325MG TAB PO PRN ×4 (01:07→20:17)
[2019-04-03] MEDS: MORPHINE SULFATE 4 MG/ML SYR/VIAL IV PRN ×5 (03:25→21:57)
[2019-04-03] MEDS: LACTATED RINGER'S 1,000 ML IV SCH ×4 (03:25→20:17)
[2019-04-03 05:00] VITALS: BP 127/83
[2019-04-03 06:11] LABS: Basophils # (auto) 0 uL; Basophils % (auto) 0.7 % (0.0-2.0); Eosinophils # (auto) 0.2 uL; Eosinophils % (auto) 4.1 % (0.0-7.0); Hematocrit 39.7 % (41.0-53.0); Hemoglobin 13.9 g/dL (13.5-17.5); Lymphocytes # (auto) 1.9 uL; Lymphocytes % (auto) 32.6 % (10.0-50.0); Mean Corpuscular Hemoglobin 33.8 pg (28.0-32.0); Mean Corpuscular Volume 96.5 fL (80.0-100.0); Monocytes # (auto) 0.5 uL; Monocytes % (auto) 7.9 % (0.0-12.0); Neutrophils # (auto) 3.1 uL; Neutrophils % (auto) 54.7 % (37.0-80.0); Nucleated Red Blood Cells % 0.1 %; Platelet Count (auto) 182 10^3/uL (140-450); Red Blood Cells 4.11 10^6/uL (4.5-5.90); Red Cell Distribution Width 13.8 % (11.8-14.3); White Blood Cell 5.7 10^3/uL (4.4-10.8)
[2019-04-03 06:28] LABS: Albumin 3.3 g/dL (3.4-5.0); Calcium 8.9 mg/dL (8.5-10.1); Potassium 3.8 mmol/L (3.5-5.1)
[2019-04-03 06:33] LABS: BUN/Creatinine Ratio 3.9; Total Protein 7.5 g/dL (6.4-8.2)
--- NOTE | 2019-04-03 07:20 | NUR ---
Opening Shift Note Assumed care of patient, awake and alert. No S/S of distress/SOB or pain. Instructed on POC and to callf or assist PRN, will continue to monitor for changes Q1hr and PRN.
[2019-04-03 08:00] VITALS: BP 133/87
[2019-04-03 09:00] VITALS: BP 133/81
[2019-04-03] MEDS: PANTOPRAZOLE 40 MG/10 ML VIAL INJ IV SCH (09:24)
[2019-04-03 12:30] VITALS: BP 123/77
[2019-04-03] MEDS: FOLIC ACID 1 MG, MULTIPLE VITAMIN 10 ML, MAGNESIUM SULF SDV 50% 8 MEQ, THIAMINE INJ 100... INJ SCH ×5 (12:32)
[2019-04-03 17:00] VITALS: BP 113/71
--- NOTE | 2019-04-03 19:30 | NUR ---
OPENING NOTE REPORT RECEIVED FROM DAY SHIFT RN PATIENT IS RESTING IN BED, C/O ABD PAIN AND NAUSEA. PATIENT WILL BE MEDICATED ORDERED PER EMAR. POC DISCUSSED, ALL QUESTIONS ANSWERED. WILL MONITOR Q1H PRN THROUGHOUT SHIFT, CALL LIGHT WITHIN REACH.
[2019-04-03 22:00] VITALS: BP 144/98
[2019-04-04] MEDS: HYDROcodone-ACET 5/325MG TAB PO PRN ×2 (00:29→04:48)
[2019-04-04] MEDS: LACTATED RINGER'S 1,000 ML IV SCH ×4 (01:54→21:13)
[2019-04-04] MEDS: ONDANSETRON HCL 4 MG/2 ML VIAL IV PRN ×5 (02:23→21:10)
[2019-04-04] MEDS: MORPHINE SULFATE 4 MG/ML SYR/VIAL IV PRN ×5 (02:24→21:10)
[2019-04-04 05:00] VITALS: BP 132/90
[2019-04-04 06:10] LABS: Albumin 3.1 g/dL (3.4-5.0); Calcium 8.7 mg/dL (8.5-10.1); Potassium 3.9 mmol/L (3.5-5.1)
[2019-04-04 06:16] LABS: Bilirubin, Total 0.7 mg/dL (0.2-1.0)
--- NOTE | 2019-04-04 07:03 | NUR ---
CLOSING PATIENT RESTING IN BED, JUST RECEIVED PAIN MEDICATIONS. CALL LIGHT WITHIN REACH. WILL ENDORSE CARE TO DAY SHIFT RN
--- NOTE | 2019-04-04 08:20 | NUR ---
Opening Note Assumed care of patient, he is A & O x4, no s/s of distress. POC discussed. Bed is in lowest, locked position, call light within reach. Patient is ambulatory and independent. Will continue to monitor Q1h and PRN.
[2019-04-04 09:00] VITALS: BP 128/77
--- NOTE | 2019-04-04 09:21 | NUR ---
Dr. Ramirez at bedside No acetaminophen for patient at this time, patient liver is affected. Fluids, monitor pain. Will continue to monitor.
--- NOTE | 2019-04-04 09:59 | NUR ---
Dr. Orosco at bedside. Keep patient NPO, patient continuing to have abdominal pain. Will order CT abd. Will follow through with orders.
[2019-04-04] MEDS: PANTOPRAZOLE 40 MG TAB PO SCH (10:52)
[2019-04-04] MEDS: PROPRANOLOL HCL 20 MG TAB PO SCH ×2 (10:54→21:12)
[2019-04-04] MEDS ORDERED: IOHEXOL 300 MG/ML 100ML BOTTLE IJ ONE (11:08)
--- NOTE | 2019-04-04 11:11 | NUR ---
Patient to CT.
--- NOTE | 2019-04-04 11:45 | NUR ---
NUTRITION ASSESSMENT NOTES Please refer to link notes of nutrition screen form filed under the intervention section of the plan of care for further details. Est. Needs: 1750 kcal to 2150 kcal (20-25 kcal/kgBW), 70 gms to 87 gms pro (0.8-1.0 gms/kgBW). Will continue to monitor pertinent labs and reassess nutrient need prn Thank you. Addendum: 04/04/19 at [address] Amended: Links added.
[2019-04-04] MEDS: FOLIC ACID 1 MG, MULTIPLE VITAMIN 10 ML, MAGNESIUM SULF SDV 50% 8 MEQ, THIAMINE INJ 100... INJ SCH ×5 (12:40)
[2019-04-04 13:00] VITALS: BP 132/88
[2019-04-04 17:00] VITALS: BP 124/77
--- NOTE | 2019-04-04 19:30 | NUR ---
OPENING NOTE REPORT RECEIVED FROM DAY SHIFT RN PATIENT IS A/OX4 RESTING IN BED. IV FLUIDS RUNNING THROUGH IV TO LEFT AC ORDERED BY MD. PATIENT PAIN LEVEL CONTROLLED AT THIS TIME. POC DISCUSSED, ALL QUESTIONS ANSWERED. PATIENT NPO AT THIS TIME PER MD ORDER. CALL LIGHT WITHIN REACH.
[2019-04-04 21:43] VITALS: BP 132/87
[2019-04-04 22:12] VITALS: BP 123/81
[2019-04-05] MEDS: MORPHINE SULFATE 4 MG/ML SYR/VIAL IV PRN ×6 (01:25→22:16)
[2019-04-05] MEDS: ONDANSETRON HCL 4 MG/2 ML VIAL IV PRN ×6 (01:26→22:16)
[2019-04-05 04:54] VITALS: BP 131/74
[2019-04-05] MEDS: LACTATED RINGER'S 1,000 ML IV SCH ×3 (04:55→21:49)
--- NOTE | 2019-04-05 06:58 | NUR ---
CLOSING PATIENT RESTING IN BED, RECENTLY MEDICATED WITH MORPHINE ORDERED-SEE EMAR. CALL LIGHT WITHIN REACH. WILL ENDORSE CARE TO DAYSHIFT RN
--- NOTE | 2019-04-05 07:07 | NUR ---
OPENING SHIFT NOTES Assumed care of patient from shift commander RN. Patient is alert and oriented x4, no signs of distress noted. Patient was updated on the plan of care and verbalized understanding. Bed is locked in the lowest position, side rails up x2 and call light is in reach. Patient was encouraged to call for assistance.
[2019-04-05 09:00] VITALS: BP 126/81
[2019-04-05] MEDS: PANTOPRAZOLE 40 MG TAB PO SCH (10:14)
[2019-04-05] MEDS: PROPRANOLOL HCL 20 MG TAB PO SCH ×2 (10:15→22:21)
[2019-04-05 13:00] VITALS: BP 115/74
[2019-04-05] MEDS: FOLIC ACID 1 MG, MULTIPLE VITAMIN 10 ML, MAGNESIUM SULF SDV 50% 8 MEQ, THIAMINE INJ 100... INJ SCH ×5 (14:23)
--- NOTE | 2019-04-05 14:23 | NUR ---
IV insertion IV access obtained, via clean sterile technique by inserting 20 gauge catheter at left forearm after 3 attempts. IV secured properly. No trauma to site. Patient tolerated well. IV removal IV DC'd with clean sterile technique, catheter fully intact. Pressure dressing applied to site. Patient tolerated well.
--- NOTE | 2019-04-05 16:00 | NUR ---
assessment Patient is a 33 year old male who is alert and oriented. Prior to admission patient lived home with family and functioned independently. Patient informed me he is able to care for his own ADLs. Per patient he will return home to his prior living arrangements post discharge and family will transport him home. Patient has been admitted for alcohol induced pancreatitis. Patient informed me he drinks 2 beers per day and 2 shots of Vodka per day. I have offered patient resources for inpatient and out patient ETOH facilities. Patient has refused resources and resources for . I informed patient he has a right to speak to a marriage and family social worker regarding all care. I informed patient he has a right to participate in any and all discharge planning. Patient does not have a POA and advanced directive. I have offered patient information on POA and advanced directives. I informed the patient the advantages and benefits of having an Advanced Directive. Patient verbalized understanding and agreed to discharge plan. Addendum: 04/05/19 at 1602 by Nyla GARZA Amended: Links added.
[2019-04-05 17:00] VITALS: BP 128/72
--- NOTE | 2019-04-05 19:19 | NUR ---
CLOSING SHIFT NOTES Care endorsed to manager data warehouse RN. No signs of distress noted.
--- NOTE | 2019-04-05 19:35 | NUR ---
Opening Shift Note Assumed care of patient, awake and alert. No S/S of distress/SOB. The patient c/o abdominal pain with a severity 6/10 but otherwise comfortable in bed. Instructed on POC and to call for assist PRN, will continue to monitor for changes Q1hr and PRN.
[2019-04-05 22:00] VITALS: BP 111/73
[2019-04-06] MEDS: LACTATED RINGER'S 1,000 ML IV SCH ×3 (01:36→14:57)
[2019-04-06] MEDS: ONDANSETRON HCL 4 MG/2 ML VIAL IV PRN ×2 (02:00→07:40)
[2019-04-06] MEDS: MORPHINE SULFATE 4 MG/ML SYR/VIAL IV PRN ×3 (02:00→14:04)
[2019-04-06 05:00] VITALS: BP 120/65
[2019-04-06 08:05] LABS: Albumin 3.6 g/dL (3.4-5.0); Calcium 9.6 mg/dL (8.5-10.1); Potassium 3.8 mmol/L (3.5-5.1)
[2019-04-06 08:08] LABS: BUN/Creatinine Ratio 9.5
[2019-04-06 08:19] LABS: Bilirubin, Total 0.5 mg/dL (0.2-1.0)
[2019-04-06 09:00] VITALS: BP 125/56
[2019-04-06] MEDS: PROPRANOLOL HCL 20 MG TAB PO SCH (10:00)
[2019-04-06] MEDS: PANTOPRAZOLE 40 MG TAB PO SCH (10:56)
--- NOTE | 2019-04-06 15:18 | NUR ---
Discharge instructions given as ordered. Encourage to follow up with PMD as instructed. All questions and concerns addressed. Patient verbalized understanding. Medication reconciliation form completed and copy given to patient. Home medications held in Pharmacy returned to patient. IV removed with catheter intact, pressure dressing applied. Patient taken to vehicle via wheelchair with all personal belongings, accompanied by staff. No distress noted at time of departure.
== END 2019-04-06 15:00 | disposition home or self-care (01) | DRG 282 ==
LOC: ER 23:38 → OVERFLOW 23:39 → MERGE 23:39 → CENTRAL 04-02 11:34
PROVIDERS: ADMIT Nurse Practitioner; ATTEND Internal Medicine
DX: K85.20 Alcohol induced acute pancreatitis without necrosis or infection (principal); E87.6 Hypokalemia; K29.20 Alcoholic gastritis without bleeding; F17.210 Nicotine dependence, cigarettes, uncomplicated; F10.188 Alcohol abuse with other alcohol-induced disorder; Z90.49 Acquired absence of other specified parts of digestive tract; Z79.899 Other long term (current) drug therapy; Y90.9 Presence of alcohol in blood, level not specified; Z68.32 Body mass index [BMI] 32.0-32.9, adult
CPT/HCPCS: 36415; 74176; 74177; 80053; 81001; 82150; 83690; 85025; 96361; 96374; 96375; C9113; G0378; J2405

== ENCOUNTER 2019-12-14 20:10 | Inpatient (IN) | payer MEDICAID ==
[~2019-12-14] VITALS: Ht 170.2 cm; Wt 96.1 kg
[2019-12-14 22:01] LABS: Basophils # (auto) 0.1 10 ^3/uL (0-0.2); Red Cell Distribution Width 14.2 % (11.8-14.3)
[2019-12-14 22:22] LABS: Albumin 4.3 g/dL (3.4-5.0); BUN/Creatinine Ratio 6.4; Calcium 10.3 mg/dL (8.5-10.1); Potassium 3.6 mmol/L (3.5-5.1)
[2019-12-14 22:25] LABS: Basophils % (auto) 0.9 % (0.0-2.0); Bilirubin, Total 1.6 mg/dL (0.2-1.0); Eosinophils # (auto) 0.1 10 ^3/uL (0-0.8); Eosinophils % (auto) 0.6 % (0.0-7.0); Hematocrit 49.8 % (41.0-53.0); Hemoglobin 17.5 g/dL (13.5-17.5); Lymphocytes # (auto) 1.6 10 ^3/uL (0.4-5.4); Lymphocytes % (auto) 15.8 % (10.0-50.0); Mean Corpuscular Hemoglobin 33.3 pg (28.0-32.0); Mean Corpuscular Hgb Conc. 35.1 g/dL (32.0-36.0); Mean Corpuscular Volume 94.8 fL (80.0-100.0); Monocytes # (auto) 0.4 10 ^3/uL (0-1.3); Monocytes % (auto) 4.2 % (0.0-12.0); Neutrophils % (auto) 78.5 % (37.0-80.0); Nucleated Red Blood Cells % 0.4 %; Platelet Count (auto) 266 10^3/uL (140-450); Red Blood Cells 5.25 10^6/uL (4.5-5.90); Total Protein 9.4 g/dL (6.4-8.2); White Blood Cell 10.1 10^3/uL (4.4-10.8)
[2019-12-15 00:53] LABS: Urine Bacteria NONE SEEN /hpf (None Seen); Urine Blood Negative /uL (Negative); Urine Mucus FEW (None Seen); Urine Specific Gravity 1.036 (1.001-1.035); Urine WBC 2 /hpf (0 - 3)
[2019-12-15] MEDS ORDERED: ONDANSETRON HCL 4 MG/2 ML VIAL IV ONE (03:15)
[2019-12-15] MEDS ORDERED: SODIUM CHLORIDE 0.9% 1,000 ML IV ONE (03:15)
[2019-12-15] MEDS ORDERED: MORPHINE SULFATE 4 MG/ML SYR/VIAL IV ONE (03:15)
[2019-12-15] MEDS ORDERED: ACETAMINOPHEN 325 MG TAB PO ONE (05:00)
[2019-12-15] MEDS ORDERED: ACETAMINOPHEN 325 MG TAB PO PRN (06:15)
[2019-12-15] MEDS ORDERED: LORazepam 0.5 MG TAB PO PRN (06:15)
[2019-12-15] MEDS ORDERED: DOCUSATE SOD 100 MG CAP PO PRN (06:15)
[2019-12-15] MEDS ORDERED: DEXTROSE (50%) 50ML SYRG IV PRN (06:15)
[2019-12-15 07:05] LABS: Cholesterol 260 mg/dL (< 200)
[2019-12-15] MEDS: SODIUM CHLORIDE 0.9% 1,000 ML IV SCH ×4 (07:06→16:28)
[2019-12-15 07:09] LABS: HDL Cholesterol 40 mg/dL (40-59); LDL Cholesterol 201 mg/dL (< 100); Triglycerides 263 mg/dL (< 150)
[2019-12-15] MEDS: MORPHINE SULF INJ 2 MG/ML SYRINGE 1ML IV PRN ×4 (08:21→21:41)
[2019-12-15] MEDS: ACCU-CHEK COMFORT CURVE STRIP VI SCH ×4 (08:25→20:11)
[2019-12-15] MEDS: InsuLIN REG 1unit/0.01ml Soln (100units/ml) SC SCH ×4 (08:32→20:00)
[2019-12-15] MEDS: ONDANSETRON HCL 4 MG/2 ML VIAL IV PRN ×3 (12:48→21:41)
[2019-12-15 13:00] VITALS: BP 124/79
[2019-12-15 16:45] VITALS: BP 127/91
[2019-12-15] MEDS: ATORVASTATIN 20 MG TAB PO SCH (18:00)
[2019-12-15] MEDS: HYDROcodone-ACET 5/325MG TAB PO PRN (19:23)
[2019-12-15] MEDS: TEMAZEPAM 15 MG CAP PO PRN (21:41)
[2019-12-15 22:18] VITALS: BP_SYST 111; BP_SYST 133; BP_DIAS 72; BP_DIAS 94
[2019-12-16] MEDS: MORPHINE SULF INJ 2 MG/ML SYRINGE 1ML IV PRN ×6 (00:35→23:43)
[2019-12-16] MEDS: SODIUM CHLORIDE 0.9% 1,000 ML IV SCH ×3 (02:15→21:42)
[2019-12-16] MEDS: InsuLIN REG 1unit/0.01ml Soln (100units/ml) SC SCH ×3 (04:00→08:00)
[2019-12-16] MEDS: HYDROcodone-ACET 5/325MG TAB PO PRN ×4 (04:22→20:06)
[2019-12-16] MEDS: ACCU-CHEK COMFORT CURVE STRIP VI SCH ×3 (04:22→08:13)
[2019-12-16 05:00] VITALS: BP 134/90
[2019-12-16 06:09] LABS: Albumin 3.5 g/dL (3.4-5.0); Potassium 3.5 mmol/L (3.5-5.1)
[2019-12-16 06:16] LABS: BUN/Creatinine Ratio 7.6; Bilirubin, Total 1.6 mg/dL (0.2-1.0); Total Protein 7.7 g/dL (6.4-8.2)
[2019-12-16 08:50] VITALS: BP 133/83
[2019-12-16 13:00] VITALS: BP 129/87
[2019-12-16] MEDS: ONDANSETRON HCL 4 MG/2 ML VIAL IV PRN ×2 (13:35→18:30)
[2019-12-16 17:00] VITALS: BP 133/92
[2019-12-16] MEDS: ATORVASTATIN 20 MG TAB PO SCH (17:07)
[2019-12-16 22:00] VITALS: BP 129/74
[2019-12-16] MEDS: TEMAZEPAM 15 MG CAP PO PRN (23:51)
[2019-12-17] MEDS: HYDROcodone-ACET 5/325MG TAB PO PRN ×4 (03:42→21:15)
[2019-12-17 05:00] VITALS: BP 135/64
[2019-12-17 06:53] LABS: Albumin 3.4 g/dL (3.4-5.0); Calcium 8.8 mg/dL (8.5-10.1); Potassium 3.6 mmol/L (3.5-5.1)
[2019-12-17 06:57] LABS: BUN/Creatinine Ratio 7.1; Bilirubin, Total 1.1 mg/dL (0.2-1.0); Total Protein 7.2 g/dL (6.4-8.2)
[2019-12-17] MEDS: SODIUM CHLORIDE 0.9% 1,000 ML IV SCH ×2 (08:33→18:15)
[2019-12-17 09:00] VITALS: BP 125/73
[2019-12-17] MEDS ORDERED: PANTOPRAZOLE 40 MG TAB PO ONE (09:45)
[2019-12-17] MEDS: MORPHINE SULF INJ 2 MG/ML SYRINGE 1ML IV PRN ×2 (10:56→18:21)
[2019-12-17] MEDS: ONDANSETRON HCL 4 MG/2 ML VIAL IV PRN ×2 (10:57→18:21)
[2019-12-17 13:00] VITALS: BP 135/91
[2019-12-17 16:57] VITALS: BP 129/77
[2019-12-17] MEDS: ATORVASTATIN 20 MG TAB PO SCH (18:10)
[2019-12-17 21:56] VITALS: BP 120/74
[2019-12-18] MEDS: MORPHINE SULF INJ 2 MG/ML SYRINGE 1ML IV PRN (00:19)
[2019-12-18] MEDS: TEMAZEPAM 15 MG CAP PO PRN (00:27)
[2019-12-18] MEDS: SODIUM CHLORIDE 0.9% 1,000 ML IV SCH (03:42)
[2019-12-18 04:45] VITALS: BP 121/83
[2019-12-18] MEDS: HYDROcodone-ACET 5/325MG TAB PO PRN ×2 (05:38→10:06)
[2019-12-18 06:23] LABS: Albumin 3.2 g/dL (3.4-5.0); Calcium 8.5 mg/dL (8.5-10.1); Potassium 3.7 mmol/L (3.5-5.1)
[2019-12-18 06:28] LABS: BUN/Creatinine Ratio 7.6; Bilirubin, Total 0.7 mg/dL (0.2-1.0); Total Protein 7.1 g/dL (6.4-8.2)
[2019-12-18 09:00] VITALS: BP 132/74
[2019-12-18] MEDS: PANTOPRAZOLE 40 MG TAB PO SCH ×3 (09:09→10:06)
== END 2019-12-18 11:35 | disposition home or self-care (01) | DRG 241 ==
LOC: ER 20:10 → OVERFLOW 20:11 → WEST WING 12-15 09:20
PROVIDERS: ADMIT Hospitalist; ATTEND Internal Medicine
DX: K29.20 Alcoholic gastritis without bleeding (principal); K85.20 Alcohol induced acute pancreatitis without necrosis or infection; E11.65 Type 2 diabetes mellitus with hyperglycemia; E44.0 Moderate protein-calorie malnutrition; E66.9 Obesity, unspecified; F17.210 Nicotine dependence, cigarettes, uncomplicated; R94.5 Abnormal results of liver function studies; Z82.49 Family history of ischemic heart disease and other diseases of the circulatory system; Z83.3 Family history of diabetes mellitus; Z90.49 Acquired absence of other specified parts of digestive tract; Z91.19 Patient's noncompliance with other medical treatment and regimen; Z68.33 Body mass index [BMI] 33.0-33.9, adult
CPT/HCPCS: 36415; 74176; 80053; 80061; 81001; 82150; 82962; 83690; 85025; 96361; 96374; 96375; G0378; J1815; J2405

== ENCOUNTER 2022-02-16 00:36 | Inpatient (IN) | payer MEDICAID ==
[~2022-02-16] VITALS: Ht 170.2 cm; Wt 85.4 kg
[2022-02-16] MEDS ORDERED: ONDANSETRON HCL 4 MG/2 ML VIAL IV ONE (01:00)
[2022-02-16] MEDS ORDERED: SODIUM CHLORIDE 0.9% 1,000 ML IV ONE (01:00)
[2022-02-16] MEDS ORDERED: HYDROmorphone HCL 2 MG/ML VL/or syr IV ONE (01:00)
[2022-02-16 01:33] LABS: Basophils # (auto) 0.1 10 ^3/uL (0-0.2); Basophils % (auto) 0.3 % (0.0-2.0); Eosinophils # (auto) 0 10 ^3/uL (0-0.8); Hematocrit 49.5 % (41.0-53.0); Lymphocytes % (auto) 10.2 % (10.0-50.0); Mean Corpuscular Hemoglobin 31.8 pg (28.0-32.0); Mean Corpuscular Hgb Conc. 34.4 g/dL (32.0-36.0); Mean Corpuscular Volume 92.4 fL (80.0-100.0); Monocytes # (auto) 1.2 10 ^3/uL (0-1.3); Monocytes % (auto) 6.2 % (0.0-12.0); Neutrophils # (auto) 16.1 10 ^3/uL (1.6-8.6); Neutrophils % (auto) 83.3 % (37.0-80.0); Nucleated Red Blood Cells % 0.1 %; Red Blood Cells 5.36 10^6/uL (4.5-5.90); Red Cell Distribution Width 13.5 % (11.8-14.3); White Blood Cell 19.3 10^3/uL (4.4-10.8)
[2022-02-16 01:48] LABS: Potassium 3.6 mmol/L (3.5-5.1)
[2022-02-16 01:49] LABS: BUN/Creatinine Ratio 15.5; Calcium 10.4 mg/dL (8.5-10.1)
[2022-02-16 01:52] LABS: Bilirubin, Total 2.2 mg/dL (0.2-1.0); Total Protein 10.9 g/dL (6.4-8.2)
[2022-02-16] MEDS ORDERED: InsuLIN REG 1unit/0.01ml Soln (100units/ml) IV ONE (05:00)
[2022-02-16] MEDS ORDERED: SODIUM CHLORIDE 0.9% 1,000 ML IV SCH (14:45)
[2022-02-16] MEDS ORDERED: MORPHINE SULFATE INJ 2 MG/ml SYRG IV PRN (14:45)
[2022-02-16] MEDS ORDERED: ACETAMINOPHEN 325 MG TAB PO PRN (14:45)
[2022-02-16] MEDS ORDERED: NITROGLYCERIN 0.4 MG SL TAB SL PRN (14:45)
[2022-02-16] MEDS ORDERED: DEXTROSE (50%) 50ML SYRG IV PRN (14:45)
[2022-02-16] MEDS: ONDANSETRON HCL 4 MG/2 ML VIAL IV PRN ×2 (15:12→20:41)
[2022-02-16] MEDS: MORPHINE SULFATE INJ 2 MG/ml SYRG IV PRN (15:15)
[2022-02-16] MEDS: PIPERACILLIN-TAZOB 3.375GM 100 ML IV SCH ×2 (15:32→23:08)
[2022-02-16] MEDS: PROMETHAZINE HCL 25 MG/ML 1ML IV PRN ×2 (16:33→23:07)
[2022-02-16] MEDS: ACCU-CHEK COMFORT CURVE STRIP VI SCH ×2 (17:10→21:28)
[2022-02-16] MEDS: InsuLIN REG 1unit/0.01ml Soln (100units/ml) SC SCH ×2 (17:11→21:31)
[2022-02-16] MEDS ORDERED: PNEUMOCOCCAL VACC POLYS 25 MCG/0.5 ML VIAL IM ONE (19:00)
[2022-02-16] MEDS ORDERED: INFLUENZA QUAD 2022-2023 0.5 ML SYRG IM ONE (19:00)
[2022-02-16] MEDS: SODIUM CHLORIDE 0.9% 1,000 ML IV SCH (19:01)
[2022-02-16 19:15] LABS: Urine Bacteria NONE SEEN /hpf (None Seen); Urine Blood 2+ /uL (Negative); Urine Specific Gravity 1.024 (1.001-1.035); Urine WBC 1 /hpf (0 - 3)
[2022-02-16 19:30] LABS: Alcohol, Urine < 3.0 mg/dL (0-10); Amphetamine Screen, Urine NEGATIVE (NEGATIVE); Barbiturate Scree,Urine NEGATIVE (NEGATIVE); Benzodiazephine Screen, Urine NEGATIVE (NEGATIVE); Cannabinoid Screen, Urine NEGATIVE (NEGATIVE); Cocaine Screen, Urine NEGATIVE (NEGATIVE); Opiate Scree,Urine NEGATIVE (NEGATIVE); Phencyclidine Screen, Urine NEGATIVE (NEGATIVE)
[2022-02-16 20:00] VITALS: BP 150/100
[2022-02-16] MEDS: HYDROcodone-ACET 5/325MG TAB PO PRN (20:40)
[2022-02-16 22:00] VITALS: BP 150/100
[2022-02-17] MEDS: SODIUM CHLORIDE 0.9% 1,000 ML IV SCH ×4 (01:45→21:19)
[2022-02-17] MEDS: ONDANSETRON HCL 4 MG/2 ML VIAL IV PRN ×2 (01:47→09:28)
[2022-02-17] MEDS: HYDROcodone-ACET 5/325MG TAB PO PRN (01:56)
[2022-02-17 05:00] VITALS: BP 149/92
[2022-02-17] MEDS: ACCU-CHEK COMFORT CURVE STRIP VI SCH ×4 (05:45→21:18)
[2022-02-17] MEDS: InsuLIN REG 1unit/0.01ml Soln (100units/ml) SC SCH ×4 (05:55→21:18)
[2022-02-17] MEDS: PROMETHAZINE HCL 25 MG/ML 1ML IV PRN ×3 (06:02→21:17)
[2022-02-17] MEDS: PIPERACILLIN-TAZOB 3.375GM 100 ML IV SCH ×3 (06:36→22:42)
[2022-02-17 06:41] LABS: Basophils # (auto) 0 10 ^3/uL (0-0.2); Basophils % (auto) 0.2 % (0.0-2.0); Eosinophils # (auto) 0 10 ^3/uL (0-0.8); Hematocrit 46.1 % (41.0-53.0); Hemoglobin 15.5 g/dL (13.5-17.5); Lymphocytes # (auto) 1.7 10 ^3/uL (0.4-5.4); Lymphocytes % (auto) 12.6 % (10.0-50.0); Mean Corpuscular Hemoglobin 31.6 pg (28.0-32.0); Mean Corpuscular Hgb Conc. 33.6 g/dL (32.0-36.0); Mean Corpuscular Volume 94.2 fL (80.0-100.0); Monocytes # (auto) 0.9 10 ^3/uL (0-1.3); Monocytes % (auto) 6.9 % (0.0-12.0); Neutrophils # (auto) 10.6 10 ^3/uL (1.6-8.6); Neutrophils % (auto) 80.3 % (37.0-80.0); Red Cell Distribution Width 13.4 % (11.8-14.3); White Blood Cell 13.2 10^3/uL (4.4-10.8)
[2022-02-17 07:00] LABS: Albumin 3.9 g/dL (3.4-5.0); Calcium 9.4 mg/dL (8.5-10.1); Potassium 3.9 mmol/L (3.5-5.1)
[2022-02-17 07:06] LABS: Bilirubin, Total 1.3 mg/dL (0.2-1.0); Total Protein 8.9 g/dL (6.4-8.2)
[2022-02-17 08:30] VITALS: BP 142/107
[2022-02-17] MEDS: PANTOPRAZOLE 40 MG/10 ML VIAL INJ IV SCH (09:27)
[2022-02-17] MEDS: MORPHINE SULFATE INJ 2 MG/ml SYRG IV PRN ×3 (09:28→21:17)
[2022-02-17] MEDS: ENOXAPARIN SOD 40 MG/0.4 ML SYRINGE SC SCH (09:29)
[2022-02-17] MEDS ORDERED: hydrALAZINE HCL 20 MG/ML VL IV PRN (09:30)
[2022-02-17 12:30] VITALS: BP 152/97
[2022-02-17 16:30] VITALS: BP 144/78
[2022-02-17] MEDS: INSULIN LANTUS (GLARGINE) 1 /0.01ml (100units/ml) SC SCH (21:57)
[2022-02-17 22:00] VITALS: BP 140/89
[2022-02-18] MEDS: HYDROcodone-ACET 5/325MG TAB PO PRN ×2 (02:54→21:46)
[2022-02-18] MEDS: SODIUM CHLORIDE 0.9% 1,000 ML IV SCH ×4 (03:37→23:58)
[2022-02-18] MEDS: ONDANSETRON HCL 4 MG/2 ML VIAL IV PRN ×4 (04:54→21:45)
[2022-02-18 05:00] VITALS: BP 125/86
[2022-02-18] MEDS: ACCU-CHEK COMFORT CURVE STRIP VI SCH ×4 (06:17→21:44)
[2022-02-18] MEDS: InsuLIN REG 1unit/0.01ml Soln (100units/ml) SC SCH ×4 (06:18→21:44)
[2022-02-18] MEDS: INSULIN LANTUS (GLARGINE) 1 /0.01ml (100units/ml) SC SCH ×2 (06:35→21:55)
[2022-02-18] MEDS: PIPERACILLIN-TAZOB 3.375GM 100 ML IV SCH ×3 (06:38→23:57)
[2022-02-18 07:05] LABS: Albumin 3.2 g/dL (3.4-5.0); Calcium 8.4 mg/dL (8.5-10.1); Potassium 3.4 mmol/L (3.5-5.1)
[2022-02-18 07:11] LABS: BUN/Creatinine Ratio 18.6; Bilirubin, Total 1.3 mg/dL (0.2-1.0)
[2022-02-18] MEDS: ENOXAPARIN SOD 40 MG/0.4 ML SYRINGE SC SCH (08:40)
[2022-02-18] MEDS: PANTOPRAZOLE 40 MG/10 ML VIAL INJ IV SCH (08:41)
[2022-02-18] MEDS: MORPHINE SULFATE INJ 2 MG/ml SYRG IV PRN ×2 (08:41→15:53)
[2022-02-18 09:00] VITALS: BP 120/77
[2022-02-18 13:00] VITALS: BP 136/86
[2022-02-18 17:00] VITALS: BP 139/80
[2022-02-18 22:00] VITALS: BP 133/81
[2022-02-19 05:00] VITALS: BP 138/90
[2022-02-19] MEDS: MORPHINE SULFATE INJ 2 MG/ml SYRG IV PRN ×3 (05:10→21:11)
[2022-02-19] MEDS: ONDANSETRON HCL 4 MG/2 ML VIAL IV PRN ×4 (05:11→21:10)
[2022-02-19] MEDS: SODIUM CHLORIDE 0.9% 1,000 ML IV SCH ×3 (06:20→19:35)
[2022-02-19] MEDS: InsuLIN REG 1unit/0.01ml Soln (100units/ml) SC SCH ×4 (07:00→21:10)
[2022-02-19] MEDS: ACCU-CHEK COMFORT CURVE STRIP VI SCH ×4 (07:08→21:10)
[2022-02-19] MEDS: PIPERACILLIN-TAZOB 3.375GM 100 ML IV SCH ×3 (07:09→22:39)
[2022-02-19] MEDS: INSULIN LANTUS (GLARGINE) 1 /0.01ml (100units/ml) SC SCH ×2 (07:10→22:39)
[2022-02-19 09:22] VITALS: BP 133/84
[2022-02-19] MEDS: THIAMINE HCL 100 MG TAB PO SCH (10:29)
[2022-02-19] MEDS: MULTIPLE VITAMIN TAB PO SCH (10:29)
[2022-02-19] MEDS: FOLIC ACID 1 MG TAB PO SCH (10:30)
[2022-02-19] MEDS: PANTOPRAZOLE 40 MG/10 ML VIAL INJ IV SCH (10:31)
[2022-02-19] MEDS: ENOXAPARIN SOD 40 MG/0.4 ML SYRINGE SC SCH (10:56)
[2022-02-19 13:00] VITALS: BP 128/86
[2022-02-19] MEDS: HYDROcodone-ACET 5/325MG TAB PO PRN (16:06)
[2022-02-19 17:04] VITALS: BP 145/58
[2022-02-19] MEDS ORDERED: SUCRALFATE 1 GM/10 ML ORAL SUSP GT SCH (19:30)
[2022-02-19] MEDS: SUCRALFATE 1 GM/10 ML ORAL SUSP PO SCH (21:10)
[2022-02-19 22:00] VITALS: BP 147/92
[2022-02-20] MEDS: MORPHINE SULFATE INJ 2 MG/ml SYRG IV PRN ×3 (04:40→22:36)
[2022-02-20] MEDS: ONDANSETRON HCL 4 MG/2 ML VIAL IV PRN ×3 (04:41→16:41)
[2022-02-20 05:00] VITALS: BP 108/69
[2022-02-20] MEDS: SODIUM CHLORIDE 0.9% 1,000 ML IV SCH ×4 (05:56→22:15)
[2022-02-20] MEDS: InsuLIN REG 1unit/0.01ml Soln (100units/ml) SC SCH ×4 (06:47→22:33)
[2022-02-20] MEDS: ACCU-CHEK COMFORT CURVE STRIP VI SCH ×4 (06:47→22:33)
[2022-02-20] MEDS: SUCRALFATE 1 GM/10 ML ORAL SUSP PO SCH ×3 (06:50→16:39)
[2022-02-20] MEDS: PIPERACILLIN-TAZOB 3.375GM 100 ML IV SCH ×3 (06:50→22:34)
[2022-02-20] MEDS: INSULIN LANTUS (GLARGINE) 1 /0.01ml (100units/ml) SC SCH ×2 (06:51→22:33)
[2022-02-20 07:59] LABS: Basophils # (auto) 0 10 ^3/uL (0-0.2); Basophils % (auto) 0.4 % (0.0-2.0); Eosinophils # (auto) 0.2 10 ^3/uL (0-0.8); Eosinophils % (auto) 2.2 % (0.0-7.0); Hematocrit 37.7 % (41.0-53.0); Hemoglobin 12.9 g/dL (13.5-17.5); Lymphocytes # (auto) 1.6 10 ^3/uL (0.4-5.4); Lymphocytes % (auto) 21.7 % (10.0-50.0); Mean Corpuscular Hemoglobin 31.7 pg (28.0-32.0); Mean Corpuscular Hgb Conc. 34.4 g/dL (32.0-36.0); Mean Corpuscular Volume 92.3 fL (80.0-100.0); Monocytes # (auto) 0.6 10 ^3/uL (0-1.3); Monocytes % (auto) 7.9 % (0.0-12.0); Neutrophils % (auto) 67.8 % (37.0-80.0); Red Blood Cells 4.08 10^6/uL (4.5-5.90); Red Cell Distribution Width 12.9 % (11.8-14.3); White Blood Cell 7.4 10^3/uL (4.4-10.8)
[2022-02-20 08:18] LABS: Potassium 3.7 mmol/L (3.5-5.1)
[2022-02-20 08:23] LABS: Albumin 3.2 g/dL (3.4-5.0); BUN/Creatinine Ratio 14.3; Calcium 8.8 mg/dL (8.5-10.1)
[2022-02-20 08:29] LABS: Bilirubin, Total 1.1 mg/dL (0.2-1.0); Total Protein 6.7 g/dL (6.4-8.2)
[2022-02-20 09:00] VITALS: BP 144/71
[2022-02-20] MEDS: FOLIC ACID 1 MG TAB PO SCH (10:08)
[2022-02-20] MEDS: MULTIPLE VITAMIN TAB PO SCH (10:09)
[2022-02-20] MEDS: HYDROcodone-ACET 5/325MG TAB PO PRN ×2 (10:09→16:40)
[2022-02-20] MEDS: THIAMINE HCL 100 MG TAB PO SCH (10:09)
[2022-02-20] MEDS: PANTOPRAZOLE 40 MG/10 ML VIAL INJ IV SCH (10:10)
[2022-02-20] MEDS: ENOXAPARIN SOD 40 MG/0.4 ML SYRINGE SC SCH (10:10)
[2022-02-20 13:00] VITALS: BP 127/74
[2022-02-20 17:00] VITALS: BP 142/78
[2022-02-20 22:00] VITALS: BP 129/81
[2022-02-21] MEDS: ONDANSETRON HCL 4 MG/2 ML VIAL IV PRN ×3 (00:48→17:44)
[2022-02-21] MEDS: HYDROcodone-ACET 5/325MG TAB PO PRN ×3 (00:49→13:27)
[2022-02-21] MEDS: SODIUM CHLORIDE 0.9% 1,000 ML IV SCH ×2 (04:54→11:35)
[2022-02-21] MEDS: ACCU-CHEK COMFORT CURVE STRIP VI SCH ×3 (06:05→17:00)
[2022-02-21] MEDS: INSULIN LANTUS (GLARGINE) 1 /0.01ml (100units/ml) SC SCH (06:05)
[2022-02-21] MEDS: InsuLIN REG 1unit/0.01ml Soln (100units/ml) SC SCH ×3 (06:05→17:00)
[2022-02-21] MEDS: SUCRALFATE 1 GM/10 ML ORAL SUSP PO SCH ×3 (06:05→17:32)
[2022-02-21] MEDS: PIPERACILLIN-TAZOB 3.375GM 100 ML IV SCH ×2 (06:06→17:32)
[2022-02-21 06:25] LABS: Basophils # (auto) 0 10 ^3/uL (0-0.2); Basophils % (auto) 0.4 % (0.0-2.0); Eosinophils # (auto) 0.2 10 ^3/uL (0-0.8); Hematocrit 35.6 % (41.0-53.0); Hemoglobin 12.1 g/dL (13.5-17.5); Lymphocytes # (auto) 1.6 10 ^3/uL (0.4-5.4); Lymphocytes % (auto) 28.3 % (10.0-50.0); Mean Corpuscular Hemoglobin 31.6 pg (28.0-32.0); Mean Corpuscular Hgb Conc. 33.8 g/dL (32.0-36.0); Mean Corpuscular Volume 93.5 fL (80.0-100.0); Monocytes # (auto) 0.6 10 ^3/uL (0-1.3); Monocytes % (auto) 10.3 % (0.0-12.0); Neutrophils # (auto) 3.2 10 ^3/uL (1.6-8.6); Red Blood Cells 3.81 10^6/uL (4.5-5.90); Red Cell Distribution Width 12.9 % (11.8-14.3); White Blood Cell 5.6 10^3/uL (4.4-10.8)
[2022-02-21] MEDS: PANTOPRAZOLE 40 MG/10 ML VIAL INJ IV SCH (08:59)
[2022-02-21] MEDS: THIAMINE HCL 100 MG TAB PO SCH (08:59)
[2022-02-21] MEDS: FOLIC ACID 1 MG TAB PO SCH (09:00)
[2022-02-21] MEDS: MULTIPLE VITAMIN TAB PO SCH (09:00)
[2022-02-21] MEDS: ENOXAPARIN SOD 40 MG/0.4 ML SYRINGE SC SCH (09:01)
[2022-02-21] MEDS: MORPHINE SULFATE INJ 2 MG/ml SYRG IV PRN ×2 (09:02→17:44)
[2022-02-21] MEDS: PROMETHAZINE HCL 25 MG/ML 1ML IV PRN (09:03)
[2022-02-21 09:32] LABS: Chloride 106 mmol/L (98-107); Potassium 3.8 mmol/L (3.5-5.1); Sodium 140 mmol/L (136-145)
[2022-02-21 09:37] LABS: Alanine Aminotransferase 111 U/L (16-61); Anion Gap 8 (5-15); Aspartate Aminotransferase 148 U/L (15-37); BUN/Creatinine Ratio 9.5; Blood Urea Nitrogen 8 mg/dL (7-18); Calcium 8.6 mg/dL (8.5-10.1); Carbon Dioxide 26 mmol/L (21-32); GFR African American 133 mL/min; GFR Non-African American 110 mL/min; Glucose 80 mg/dL (74-106)
[2022-02-21 09:39] LABS: Alkaline Phosphatase 138 U/L (45-117); Bilirubin, Total 1.3 mg/dL (0.2-1.0); Total Protein 6.4 g/dL (6.4-8.2)
[2022-02-21 09:42] VITALS: BP 133/74
[2022-02-21] MEDS ORDERED: FOLI1TAB6 PO (13:18)
[2022-02-21] MEDS ORDERED: METF-370 PO (13:19)
[2022-02-21 13:43] VITALS: BP 112/71
[2022-02-21 16:31] VITALS: BP 115/74
[2022-02-21 18:31] VITALS: BP 142/107
[2022-02-21 19:00] VITALS: BP 108/58
== END 2022-02-21 19:30 | disposition home or self-care (01) | DRG 420 ==
LOC: ER 00:36 → TELE 14:52 → TELE-EAST 18:14
PROVIDERS: ADMIT Nurse Practitioner; ATTEND Nurse Practitioner
DX: E11.10 Type 2 diabetes mellitus with ketoacidosis without coma (principal); N17.0 Acute kidney failure with tubular necrosis; N30.01 Acute cystitis with hematuria; F17.210 Nicotine dependence, cigarettes, uncomplicated; I10 Essential (primary) hypertension; F10.10 Alcohol abuse, uncomplicated; Z20.822 Contact with and (suspected) exposure to COVID-19; D72.829 Elevated white blood cell count, unspecified; Z82.49 Family history of ischemic heart disease and other diseases of the circulatory system; Z83.3 Family history of diabetes mellitus; Z90.49 Acquired absence of other specified parts of digestive tract; Z87.19 Personal history of other diseases of the digestive system; Z88.5 Allergy status to narcotic agent
CPT/HCPCS: 36415; 71045; 74176; 80053; 80307; 80320; 81001; 82010; 82962; 83036; 83605; 83690; 85025; 87426; 93005; 93306; 96365; 96366; 96372; 96375; C9113; G0378; J1815; J2405; J2543

== ENCOUNTER 2022-06-09 01:45 | Inpatient (IN) | payer MEDICAID ==
[~2022-06-09] VITALS: Ht 170.2 cm; Wt 91.6 kg
[~2022-06-09 01:45] MED LIST changes: +FOLI1TAB6 PO; +METF-370 PO
[2022-06-09 02:44] LABS: Basophils # (auto) 0 10 ^3/uL (0-0.2); Basophils % (auto) 0.5 % (0.0-2.0); Eosinophils # (auto) 0 10 ^3/uL (0-0.8); Eosinophils % (auto) 0.1 % (0.0-7.0); Hematocrit 40.7 % (41.0-53.0); Hemoglobin 14.2 g/dL (13.5-17.5); Lymphocytes # (auto) 1.4 10 ^3/uL (0.4-5.4); Lymphocytes % (auto) 14.8 % (10.0-50.0); Mean Corpuscular Hemoglobin 31.7 pg (28.0-32.0); Mean Corpuscular Hgb Conc. 34.9 g/dL (32.0-36.0); Mean Corpuscular Volume 90.9 fL (80.0-100.0); Monocytes # (auto) 0.6 10 ^3/uL (0-1.3); Monocytes % (auto) 6.9 % (0.0-12.0); Neutrophils # (auto) 7.2 10 ^3/uL (1.6-8.6); Neutrophils % (auto) 77.7 % (37.0-80.0); Nucleated Red Blood Cells % 0.1 %; Red Blood Cells 4.48 10^6/uL (4.5-5.90); White Blood Cell 9.2 10^3/uL (4.4-10.8)
[2022-06-09] MEDS ORDERED: ONDANSETRON HCL 4 MG/2 ML VIAL IV ONE (02:45)
[2022-06-09] MEDS ORDERED: SODIUM CHLORIDE 0.9% 1,000 ML IV ONE (02:45)
[2022-06-09] MEDS ORDERED: HYDROmorphone HCL 2 MG/ML VL/or syr IV ONE ×2 (02:45→05:15)
[2022-06-09 03:03] LABS: Albumin 4.2 g/dL (3.4-5.0); BUN/Creatinine Ratio 10.5; Potassium 3.6 mmol/L (3.5-5.1)
[2022-06-09 03:06] LABS: Bilirubin, Total 0.8 mg/dL (0.2-1.0)
[2022-06-09] MEDS ORDERED: DEXTROSE (50%) 50ML SYRG IV PRN (06:30)
[2022-06-09] MEDS: SODIUM CHLORIDE 0.9% 1,000 ML IV SCH ×2 (07:57→17:28)
[2022-06-09] MEDS: ONDANSETRON HCL 4 MG/2 ML VIAL IV PRN ×2 (09:49→14:39)
[2022-06-09] MEDS: MORPHINE SULFATE INJ 2 MG/ml SYRG IV PRN ×3 (09:55→20:44)
[2022-06-09] MEDS: ACCU-CHEK COMFORT CURVE STRIP VI SCH ×2 (11:52→17:40)
[2022-06-09] MEDS: InsuLIN REG 1unit/0.01ml Soln (100units/ml) SC SCH ×2 (11:56→17:40)
[2022-06-09 16:00] VITALS: BP 156/96
[2022-06-09 17:26] VITALS: BP 157/99
[2022-06-09 22:00] VITALS: BP 148/98
[2022-06-10] VITALS (7 sets, daily range): BP systolic 130–155; BP diastolic 88–99
[2022-06-10] MEDS: MORPHINE SULFATE INJ 2 MG/ml SYRG IV PRN ×5 (01:10→21:35)
[2022-06-10] MEDS: SODIUM CHLORIDE 0.9% 1,000 ML IV SCH ×2 (04:44→15:51)
[2022-06-10] MEDS: InsuLIN REG 1unit/0.01ml Soln (100units/ml) SC SCH ×5 (05:36→23:30)
[2022-06-10] MEDS: ACCU-CHEK COMFORT CURVE STRIP VI SCH ×5 (05:39→23:30)
[2022-06-10 06:37] LABS: Basophils # (auto) 0 10 ^3/uL (0-0.2); Basophils % (auto) 0.2 % (0.0-2.0); Eosinophils # (auto) 0 10 ^3/uL (0-0.8); Eosinophils % (auto) 0.1 % (0.0-7.0); Hematocrit 43.8 % (41.0-53.0); Hemoglobin 14.9 g/dL (13.5-17.5); Lymphocytes # (auto) 1.5 10 ^3/uL (0.4-5.4); Lymphocytes % (auto) 14.3 % (10.0-50.0); Mean Corpuscular Hemoglobin 31.6 pg (28.0-32.0); Mean Corpuscular Hgb Conc. 34.1 g/dL (32.0-36.0); Mean Corpuscular Volume 92.7 fL (80.0-100.0); Monocytes # (auto) 0.7 10 ^3/uL (0-1.3); Neutrophils % (auto) 78.4 % (37.0-80.0); Nucleated Red Blood Cells % 0.2 %; Potassium 3.6 mmol/L (3.5-5.1); Red Blood Cells 4.73 10^6/uL (4.5-5.90); Red Cell Distribution Width 14.1 % (11.8-14.3); White Blood Cell 10.2 10^3/uL (4.4-10.8)
[2022-06-10 07:09] LABS: Albumin 4.3 g/dL (3.4-5.0); Bilirubin, Total 1.5 mg/dL (0.2-1.0); Calcium 9.1 mg/dL (8.5-10.1); Total Protein 9.3 g/dL (6.4-8.2)
[2022-06-10] MEDS: PANTOPRAZOLE 40 MG/10 ML VIAL INJ IV SCH (10:25)
[2022-06-10] MEDS: ONDANSETRON HCL 4 MG/2 ML VIAL IV PRN ×3 (10:25→21:35)
[2022-06-10] MEDS: FOLIC ACID 1 MG, MULTIPLE VITAMIN 10 ML, MAGNESIUM SULF SDV 50% 8 MEQ, THIAMINE INJ 100... INJ SCH ×5 (13:06)
[2022-06-11] MEDS: ONDANSETRON HCL 4 MG/2 ML VIAL IV PRN ×3 (01:43→10:24)
[2022-06-11] MEDS: MORPHINE SULFATE INJ 2 MG/ml SYRG IV PRN ×3 (01:46→10:24)
[2022-06-11] MEDS: SODIUM CHLORIDE 0.9% 1,000 ML IV SCH ×2 (02:20→14:05)
[2022-06-11 05:00] VITALS: BP 155/89
[2022-06-11] MEDS: InsuLIN REG 1unit/0.01ml Soln (100units/ml) SC SCH ×4 (05:50→23:37)
[2022-06-11] MEDS: ACCU-CHEK COMFORT CURVE STRIP VI SCH ×4 (05:50→23:37)
[2022-06-11 06:10] LABS: Amylase 92 U/L (25-115); Lipase 1085 U/L (73-393)
[2022-06-11 08:00] VITALS: BP 131/87
[2022-06-11 08:47] VITALS: BP 131/87
[2022-06-11] MEDS: PANTOPRAZOLE 40 MG/10 ML VIAL INJ IV SCH (10:24)
[2022-06-11] MEDS: FOLIC ACID 1 MG, MULTIPLE VITAMIN 10 ML, MAGNESIUM SULF SDV 50% 8 MEQ, THIAMINE INJ 100... INJ SCH ×5 (12:17)
[2022-06-11] MEDS ORDERED: ACETAMINOPHEN 500 MG TAB PO ONE (12:45)
[2022-06-11 13:00] VITALS: BP 132/85
[2022-06-11 16:52] VITALS: BP 142/91
[2022-06-11] MEDS: HYDROcodone-ACET 5/325MG TAB PO PRN ×2 (17:05→21:44)
[2022-06-11 22:00] VITALS: BP 127/81
[2022-06-12] MEDS: SODIUM CHLORIDE 0.9% 1,000 ML IV SCH ×2 (01:08→12:19)
[2022-06-12] MEDS: MORPHINE SULFATE INJ 2 MG/ml SYRG IV PRN ×4 (01:09→21:25)
[2022-06-12] MEDS: HYDROcodone-ACET 5/325MG TAB PO PRN ×2 (04:58→18:25)
[2022-06-12 05:00] VITALS: BP 156/91
[2022-06-12] MEDS: ONDANSETRON HCL 4 MG/2 ML VIAL IV PRN ×4 (05:04→21:20)
[2022-06-12] MEDS: InsuLIN REG 1unit/0.01ml Soln (100units/ml) SC SCH ×4 (05:44→23:46)
[2022-06-12] MEDS: ACCU-CHEK COMFORT CURVE STRIP VI SCH ×4 (05:44→23:45)
[2022-06-12 08:00] VITALS: BP 124/88
[2022-06-12 09:00] VITALS: BP 124/88
[2022-06-12] MEDS: PANTOPRAZOLE 40 MG/10 ML VIAL INJ IV SCH (10:41)
[2022-06-12 12:47] VITALS: BP 116/71
[2022-06-12] MEDS: FOLIC ACID 1 MG, MULTIPLE VITAMIN 10 ML, MAGNESIUM SULF SDV 50% 8 MEQ, THIAMINE INJ 100... INJ SCH ×5 (13:06)
[2022-06-12 17:00] VITALS: BP 131/77
[2022-06-12 22:00] VITALS: BP 131/79
[2022-06-13] MEDS: SODIUM CHLORIDE 0.9% 1,000 ML IV SCH ×2 (01:03→10:13)
[2022-06-13] MEDS: HYDROcodone-ACET 5/325MG TAB PO PRN ×4 (01:19→15:43)
[2022-06-13 05:00] VITALS: BP 126/77
[2022-06-13] MEDS: InsuLIN REG 1unit/0.01ml Soln (100units/ml) SC SCH ×2 (05:22→12:00)
[2022-06-13] MEDS: ACCU-CHEK COMFORT CURVE STRIP VI SCH ×2 (05:22→12:52)
[2022-06-13 05:53] LABS: Potassium 3.8 mmol/L (3.5-5.1)
[2022-06-13 06:08] LABS: Albumin 3.3 g/dL (3.4-5.0); BUN/Creatinine Ratio 13.6; Bilirubin, Total 0.9 mg/dL (0.2-1.0); Calcium 8.9 mg/dL (8.5-10.1); Total Protein 7.8 g/dL (6.4-8.2)
[2022-06-13] MEDS: ONDANSETRON HCL 4 MG/2 ML VIAL IV PRN ×2 (08:18→15:43)
[2022-06-13 08:47] VITALS: BP 140/88
[2022-06-13] MEDS: PANTOPRAZOLE 40 MG/10 ML VIAL INJ IV SCH (10:12)
[2022-06-13] MEDS: FOLIC ACID 1 MG, MULTIPLE VITAMIN 10 ML, MAGNESIUM SULF SDV 50% 8 MEQ, THIAMINE INJ 100... INJ SCH ×5 (12:52)
[2022-06-13 13:22] VITALS: BP 124/74
[2022-06-13 13:53] LABS: Hepatitis C Antibody Negative (Negative)
[2022-06-13 16:28] VITALS: BP 140/88
[2022-06-13 17:26] VITALS: BP 109/67
== END 2022-06-13 17:45 | disposition home or self-care (01) | DRG 282 ==
LOC: ER 01:45 → OVERFLOW 06:24 → CENTRAL 13:56
PROVIDERS: ADMIT Nurse Practitioner; ATTEND Internal Medicine
DX: K85.20 Alcohol induced acute pancreatitis without necrosis or infection (principal); E11.9 Type 2 diabetes mellitus without complications; F17.210 Nicotine dependence, cigarettes, uncomplicated; R74.8 Abnormal levels of other serum enzymes; Z20.822 Contact with and (suspected) exposure to COVID-19; I10 Essential (primary) hypertension; Z90.49 Acquired absence of other specified parts of digestive tract; Z88.5 Allergy status to narcotic agent; Z82.49 Family history of ischemic heart disease and other diseases of the circulatory system; Z83.3 Family history of diabetes mellitus
CPT/HCPCS: 36415; 71045; 74176; 80053; 82150; 82962; 83690; 85025; 86803; 87340; 87426; 96361; 96374; 96375; 96376; C9113; G0378; J1815; J2405

== ENCOUNTER 2023-03-02 19:57 | Inpatient (IN) | payer MEDICAID ==
[~2023-03-02] VITALS: Ht 170.2 cm; Wt 170.8 kg
[~2023-03-02 19:57] MED LIST changes: -FOLI1TAB6 PO; -PANT40TA2 PO
[2023-03-02 21:04] LABS: Basophils # (auto) 0.1 10 ^3/uL (0-0.2); Basophils % (auto) 0.9 % (0.0-2.0); Eosinophils # (auto) 0 10 ^3/uL (0-0.8); Eosinophils % (auto) 0.1 % (0.0-7.0); Hematocrit 46.5 % (41.0-53.0); Hemoglobin 15.5 g/dL (13.5-17.5); Lymphocytes # (auto) 1.3 10 ^3/uL (0.4-5.4); Lymphocytes % (auto) 14.9 % (10.0-50.0); Mean Corpuscular Hemoglobin 32.3 pg (28.0-32.0); Mean Corpuscular Hgb Conc. 33.3 g/dL (32.0-36.0); Mean Corpuscular Volume 97.2 fL (80.0-100.0); Monocytes # (auto) 0.4 10 ^3/uL (0-1.3); Monocytes % (auto) 4.1 % (0.0-12.0); Red Blood Cells 4.78 10^6/uL (4.5-5.90); Red Cell Distribution Width 14.5 % (11.8-14.3); White Blood Cell 8.7 10^3/uL (4.4-10.8)
[2023-03-02 21:20] LABS: Alanine Aminotransferase 252 U/L (7-40); Albumin 5.2 g/dL (3.2-4.8); Alkaline Phosphatase 147 U/L (46-116); Anion Gap 25 (5-15); Aspartate Aminotransferase 190 U/L (13-40); Bilirubin, Total 1.7 mg/dL (0.2-1.0); Calcium 10.1 mg/dL (8.7-10.4); Carbon Dioxide 16 mmol/L (20-30); Chloride 95 mmol/L (98-107); Glucose 248 mg/dL (74-106); Potassium 3.9 mmol/L (3.5-5.1); Sodium 136 mmol/L (136-145); Total Protein 9.3 g/dL (5.7-8.2)
[2023-03-02 21:30] LABS: BUN/Creatinine Ratio 5.1 (10.0-20.0); Blood Urea Nitrogen < 5 mg/dL (9-23)
[2023-03-02] MEDS ORDERED: METOCLOPRAMIDE HCL 5MG/ml INJ 2ml VIAL IV ONE (21:30)
[2023-03-02] MEDS ORDERED: ONDANSETRON HCL 4 MG/2 ML VIAL IV ONE (21:30)
[2023-03-02] MEDS ORDERED: SODIUM CHLORIDE 0.9% 1,000 ML IVB ONE (21:30)
[2023-03-02] MEDS ORDERED: PANTOPRAZOLE 40 MG/10 ML VIAL INJ IV ONE (21:30)
[2023-03-02] MEDS ORDERED: LORazepam 2MG/ML-1ML VIAL IV ONE (21:30)
[2023-03-02] MEDS ORDERED: HYDROmorphone HCL 2 MG/ML VL/or syr IV ONE (21:30)
[2023-03-02 21:58] LABS: Blood Alcohol 7.6 mg/dL (<10)
[2023-03-02 23:50] VITALS: PULSE 80; RESP 18; O2SAT 98
[2023-03-03] VITALS (9 sets, daily range): BP systolic 132–147; BP diastolic 85–93; PULSE 81–125; RESP 16–19; TEMP 97.7–98.5; O2SAT 95–97
[2023-03-03] MEDS ORDERED: IBUPROFEN 600 MG TAB PO PRN (00:15)
[2023-03-03] MEDS ORDERED: MORPHINE SULFATE INJ 2 MG/ml SYRG IV PRN (00:15)
[2023-03-03] MEDS ORDERED: NITROGLYCERIN 0.4 MG SL TAB SL PRN (00:15)
[2023-03-03] MEDS: SODIUM CHLORIDE 0.9% 1,000 ML IV SCH ×2 (00:15→16:55)
[2023-03-03] MEDS ORDERED: METOCLOPRAMIDE HCL 5MG/ml INJ 2ml VIAL IV PRN ×2 (00:15→13:30)
[2023-03-03] MEDS ORDERED: LORazepam 2MG/ML-1ML VIAL IV PRN (00:15)
[2023-03-03] MEDS ORDERED: DEXTROSE (50%) 50ML SYRG IV PRN (00:45)
[2023-03-03] MEDS: HYDROmorphone HCL 2 MG/ML VL/or syr IV PRN ×3 (04:07→18:35)
[2023-03-03] MEDS: ONDANSETRON HCL 4 MG/2 ML VIAL IV PRN ×3 (04:34→18:33)
[2023-03-03] MEDS ORDERED: INFLUENZA QUAD 2023-2024 0.5 ML SYRG IM ONE (05:45)
[2023-03-03] MEDS: ACCU-CHEK COMFORT CURVE STRIP VI SCH ×3 (06:06→17:14)
[2023-03-03] MEDS: InsuLIN REG 1unit/0.01ml Soln (100units/ml) SC SCH ×4 (06:06→17:15)
[2023-03-03 06:22] LABS: Basophils # (auto) 0 10 ^3/uL (0-0.2); Basophils % (auto) 0.3 % (0.0-2.0); Eosinophils # (auto) 0 10 ^3/uL (0-0.8); Hematocrit 42.8 % (41.0-53.0); Hemoglobin 14.4 g/dL (13.5-17.5); Lymphocytes # (auto) 0.6 10 ^3/uL (0.4-5.4); Lymphocytes % (auto) 5.5 % (10.0-50.0); Mean Corpuscular Hemoglobin 32.2 pg (28.0-32.0); Mean Corpuscular Hgb Conc. 33.8 g/dL (32.0-36.0); Mean Corpuscular Volume 95.3 fL (80.0-100.0); Monocytes # (auto) 0.3 10 ^3/uL (0-1.3); Monocytes % (auto) 2.8 % (0.0-12.0); Neutrophils # (auto) 9.7 10 ^3/uL (1.6-8.6); Neutrophils % (auto) 91.4 % (37.0-80.0); Red Blood Cells 4.48 10^6/uL (4.5-5.90); Red Cell Distribution Width 14.5 % (11.8-14.3); White Blood Cell 10.6 10^3/uL (4.4-10.8)
[2023-03-03 06:41] LABS: Alanine Aminotransferase 220 U/L (7-40); Albumin 5.1 g/dL (3.2-4.8); Alkaline Phosphatase 133 U/L (46-116); Anion Gap 16 (5-15); Aspartate Aminotransferase 119 U/L (13-40); BUN/Creatinine Ratio 6.6 (10.0-20.0); Bilirubin, Total 1.8 mg/dL (0.2-1.0); Blood Urea Nitrogen 6 mg/dL (9-23); Calcium 9.5 mg/dL (8.7-10.4); Carbon Dioxide 20 mmol/L (20-30); Chloride 98 mmol/L (98-107); Glucose 283 mg/dL (74-106); Potassium 4.1 mmol/L (3.5-5.1); Sodium 134 mmol/L (136-145); Total Protein 9.1 g/dL (5.7-8.2)
[2023-03-03] MEDS ORDERED: SODIUM CHLORIDE LOCK 0 ML ONE (09:28)
[2023-03-03] MEDS ORDERED: LIDOCAINE VISCOUS 2% 15ML UD ONE ×2 (09:28→13:11)
[2023-03-03] MEDS ORDERED: diphenhdrAMINE HCL 50 MG/1 ML VL ONE (09:29)
[2023-03-03] MEDS ORDERED: MIDAZOLAM HCL 5 MG/ML-1ML VIAL ONE (09:29)
[2023-03-03] MEDS ORDERED: fentaNYL CITRATE 100 MCG/2 ML VL ONE ×2 (09:29→13:21)
[2023-03-03] MEDS ORDERED: MIDAZOLAM HCL 2MG/2ML 2ml VIAL (1mg/ml) ONE (13:21)
[2023-03-03] MEDS ORDERED: HYDROmorphone HCL 2 MG/ML VL/or syr IV PRN (13:30)
[2023-03-03] MEDS ORDERED: MIDAZOLAM HCL 2MG/2ML 2ml VIAL (1mg/ml) IV PRN (13:30)
[2023-03-03] MEDS ORDERED: ePHEDrine SULFATE 50 MG/ML AMP IV PRN (13:30)
[2023-03-03] MEDS ORDERED: MORPHINE SULFATE 4 MG/ML SYR/VIAL IV PRN (13:30)
[2023-03-03] MEDS ORDERED: ONDANSETRON HCL 4 MG/2 ML VIAL IV PRN (13:30)
[2023-03-03] MEDS ORDERED: LABETALOL HCL 5 MG/ML 4ML SYRINGE IV PRN (13:30)
[2023-03-03] MEDS ORDERED: PROPOFOL 10 MG/ML 20 ML IV ONE (13:54)
[2023-03-03] MEDS ORDERED: DexAMETHasone SOD PHOS 10MG/1ML VIAL INJ ONE (13:54)
[2023-03-03] MEDS: SUCRALFATE 1 GM TAB PO SCH ×2 (17:14→22:06)
[2023-03-03] MEDS: PANTOPRAZOLE 40 MG/10 ML VIAL INJ IV SCH (22:05)
[2023-03-04] MEDS: InsuLIN REG 1unit/0.01ml Soln (100units/ml) SC SCH ×3 (00:21→12:09)
[2023-03-04] MEDS: ACCU-CHEK COMFORT CURVE STRIP VI SCH ×3 (00:22→12:09)
[2023-03-04] MEDS: ONDANSETRON HCL 4 MG/2 ML VIAL IV PRN ×2 (03:02→10:00)
[2023-03-04] MEDS: HYDROmorphone HCL 2 MG/ML VL/or syr IV PRN ×2 (03:02→10:01)
[2023-03-04 05:00] VITALS: BP 127/79; PULSE 86; RESP 16; TEMP 97.7; O2SAT 97
[2023-03-04 05:41] LABS: Basophils # (auto) 0 10 ^3/uL (0-0.2); Basophils % (auto) 0.1 % (0.0-2.0); Eosinophils # (auto) 0 10 ^3/uL (0-0.8); Hematocrit 41.4 % (41.0-53.0); Lymphocytes # (auto) 0.7 10 ^3/uL (0.4-5.4); Mean Corpuscular Hemoglobin 32.2 pg (28.0-32.0); Mean Corpuscular Hgb Conc. 33.7 g/dL (32.0-36.0); Mean Corpuscular Volume 95.4 fL (80.0-100.0); Monocytes # (auto) 0.2 10 ^3/uL (0-1.3); Monocytes % (auto) 1.8 % (0.0-12.0); Neutrophils # (auto) 8.7 10 ^3/uL (1.6-8.6); Neutrophils % (auto) 91.1 % (37.0-80.0); Red Blood Cells 4.34 10^6/uL (4.5-5.90); Red Cell Distribution Width 14.3 % (11.8-14.3); White Blood Cell 9.5 10^3/uL (4.4-10.8)
[2023-03-04 05:55] LABS: INR 1.13 (0.9-1.15); Prothrombin Time 11.8 sec (9.3-11.8)
[2023-03-04 06:04] LABS: Alanine Aminotransferase 177 U/L (7-40); Alkaline Phosphatase 122 U/L (46-116); Anion Gap 15 (5-15); BUN/Creatinine Ratio 12.2 (10.0-20.0); Blood Urea Nitrogen 11 mg/dL (9-23); Calcium 10.1 mg/dL (8.5-10.1); Carbon Dioxide 21 mmol/L (20-30); Chloride 96 mmol/L (98-107); LDL Cholesterol 281 mg/dL (< 100); Sodium 132 mmol/L (136-145); Triglycerides 120 mg/dL (< 150)
[2023-03-04 06:05] LABS: Albumin 5.1 g/dL (3.2-4.8); Aspartate Aminotransferase 80 U/L (13-40); CRP High Sensitivity > 1.00 mg/dL (<1.0); HDL Cholesterol 80 mg/dL (40-59)
[2023-03-04 06:06] LABS: Bilirubin, Total 2.1 mg/dL (0.2-1.0)
[2023-03-04 06:07] LABS: Glucose 176 mg/dL (74-106)
[2023-03-04 06:28] LABS: Cholesterol 351 mg/dL (< 200)
[2023-03-04] MEDS: SUCRALFATE 1 GM TAB PO SCH ×2 (06:31→10:04)
[2023-03-04 06:54] LABS: Magnesium 2.1 mg/dL (1.6-2.6)
[2023-03-04] MEDS ORDERED: INSULIN LANTUS (GLARGINE) 1 /0.01ml (100units/ml) SC SCH (07:00)
[2023-03-04 08:00] VITALS: RESP 16; O2SAT 96
[2023-03-04] MEDS: PANTOPRAZOLE 40 MG/10 ML VIAL INJ IV SCH (10:00)
[2023-03-04 10:01] VITALS: BP 121/72; PULSE 91; RESP 16
[2023-03-04] MEDS: SODIUM CHLORIDE 0.9% 1,000 ML IV SCH (10:01)
[2023-03-04] MEDS ORDERED: SUCR1TAB22 OR (10:48)
[2023-03-04] MEDS ORDERED: PANT40TA2 PO (10:48)
[2023-03-04 16:31] VITALS: TEMP 36.5
[2023-03-06 12:08] LABS: Hepatitis A Ab IgM Negative; Hepatitis A Total Antibody Positive (Negative); Hepatitis B Core IgM Negative; Hepatitis B Core Total AB Negative (Negative); Hepatitis B Surface Antibody Positive (Negative)
[2023-03-06 12:09] LABS: Hepatitis B Surface Antigen Negative (Negative); Hepatitis C Antibody Negative (Negative)
== END 2023-03-04 19:06 | disposition home or self-care (01) | DRG 241 ==
LOC: ER 19:57 → OVERFLOW 03-03 00:32 → WEST WING 03-03 03:38
PROVIDERS: ADMIT Internal Medicine Pulmonary Disease; ATTEND Internal Medicine Pulmonary Disease
PROC: 0DB68ZX Excision of Stomach, Via Natural or Artificial Opening Endoscopic, Diagnostic (ICD-10-PCS; 2023-03-03)
PROC: 0DB48ZX Excision of Esophagogastric Junction, Via Natural or Artificial Opening Endoscopic, Diagnostic (ICD-10-PCS; 2023-03-03)
PROC: 0DB98ZX Excision of Duodenum, Via Natural or Artificial Opening Endoscopic, Diagnostic (ICD-10-PCS; principal; 2023-03-03 13:33)
DX: K27.9 Peptic ulcer, site unspecified, unspecified as acute or chronic, without hemorrhage or perforation (principal); K22.10 Ulcer of esophagus without bleeding; K29.70 Gastritis, unspecified, without bleeding; K29.80 Duodenitis without bleeding; E11.65 Type 2 diabetes mellitus with hyperglycemia; F10.10 Alcohol abuse, uncomplicated; F17.210 Nicotine dependence, cigarettes, uncomplicated; I10 Essential (primary) hypertension; E11.9 Type 2 diabetes mellitus without complications; F41.9 Anxiety disorder, unspecified; R74.01 Elevation of levels of liver transaminase levels; R79.89 Other specified abnormal findings of blood chemistry; K44.9 Diaphragmatic hernia without obstruction or gangrene; K86.1 Other chronic pancreatitis; Z82.49 Family history of ischemic heart disease and other diseases of the circulatory system; Z83.3 Family history of diabetes mellitus; Z90.49 Acquired absence of other specified parts of digestive tract
CPT/HCPCS: 36415; 71045; 74176; 76705; 80053; 80061; 80074; 80320; 82962; 83036; 83690; 83735; 84443; 84484; 85025; 85610; 86141; 86704; 86706; 86708; 86803; 87340; 96361; 96374; 96375; 99291; C9113; G0378; J1100; J1815; J2250; J2405; J2704

== ENCOUNTER 2023-07-31 05:13 | Emergency (ER) | payer MEDICAID ==
[~2023-07-31] VITALS: Ht 170.2 cm; Wt 78.2 kg
[~2023-07-31 05:13] MED LIST changes: +PANT40TA2 PO; +SUCR1TAB31 OR
[2023-07-31] MEDS: LORazepam 2MG/ML-1ML VIAL IM ONE (05:41)
[2023-07-31] MEDS ORDERED: CHL25C PO (06:34)
[2023-07-31 06:47] LABS: Anion Gap 24 (5-15); Carbon Dioxide 15 mmol/L (20-30); Chloride 97 mmol/L (98-107); Potassium 3.7 mmol/L (3.5-5.1); Sodium 136 mmol/L (136-145)
[2023-07-31 06:48] LABS: Calcium 10.4 mg/dL (8.5-10.1)
[2023-07-31 06:53] LABS: BUN/Creatinine Ratio 5.2 (10.0-20.0); Blood Urea Nitrogen < 5 mg/dL (9-23); Glucose 218 mg/dL (74-106)
[2023-07-31 08:17] VITALS: BP 141/87; PULSE 88; RESP 17; TEMP 98.7; O2SAT 99
== END 2023-07-31 08:21 | disposition home or self-care (01) ==
LOC: ER 05:13
DX: F10.239 Alcohol dependence with withdrawal, unspecified (principal); Z79.899 Other long term (current) drug therapy; Y90.8 Blood alcohol level of 240 mg/100 ml or more
CPT/HCPCS: 36415; 80048; 82962; 96372; 99283; J2060

== ENCOUNTER 2024-11-03 01:19 | Inpatient (IN) | payer MEDICAID ==
[~2024-11-03] VITALS: Ht 170.2 cm; Wt 82.2 kg
[~2024-11-03 01:19] MED LIST changes: +CHL25C PO
--- NOTE | 2024-11-03 02:31 | ED.PDOC ---
GI ASSESSMENT HPI Comments 39-year-old male came to ER for abdominal pain. Patient has history of hypertension, diabetes, pancreatitis, and is an known heavy alcohol drinker. Admits to having drinking heavily alcohol again last night. Few hours ago, epigastric abdominal pain, associated multiple bouts of nausea and vomiting, and diaphoresis. REVIEW OF SYSTEMS: No fever, no chills, or fatigue HEENT: No sore throat, no earache, no congestion, no neck pain. Cardiac: No chest pain. No palpitations. Lungs: No shortness of breath, no cough. GI: (+) nausea, (+) vomiting, no diarrhea, no constipation, (+) abdominal pain : No dysuria, frequency, or urgency. No hematuria. Musculoskeletal: No joint pain , no joint swelling, no extremity edema. Skin: No rash, no itching. Neuro: No headache, no dizziness, no weakness Physical exam General: Awake, alert and oriented. No acute distress. Patient is actively vomiting Skin: Skin in warm, dry and intact. Appropriate color for ethnicity. Nailbeds pink with no cyanosis. HEENT: The head is normocephalic and atraumatic. Conjunctivae are clear without exudates or hemorrhage. Sclera is non-icteric. EOM are intact. No signs of nystagmus. Eyelids are normal in appearance without swelling or lesions. Oral mucosa is pink and moist Neck: The neck is supple with normal range of motion. No JVD. Cardiac: Heart rate and rhythm are normal. No murmurs, gallops, or rubs are auscultated. Respiratory: No signs of respiratory distress. Lung sounds are clear in all lobes bilaterally without rales, rhonchi, or wheezes. Abdominal: Abdomen is soft, generally tender without distention, guarding or rigidity.. Extremities: Upper and lower extremities are atraumatic in appearance without deformity or edema. Neurological: The patient is awake, alert and oriented to person, place, and time with normal speech. Speech is clear. There is no facial asymmetry. Chief Complaint: Abdominal Pain Time Seen by MD: 02:31 Primary Care Provider: none Reviewed Notes: Nurses Notes Allergies: Coded Allergies: NO KNOWN ALLERGIES (Unverified , 06/09/22) Home Meds Active Scripts Chlordiazepoxide Hcl (Librium) 25 Mg Cp, 25 MG PO Q6HPRN PRN, #30 CAP Prov:DICKEY,ALISA T DO 07/31/23 Sucralfate (CARAFATE) 1 Gm Tab, 1 GM OR QIDACHS, #120 TAB 2 Refills Prov:CHARISSE CRENSHAW MD 03/04/23 Pantoprazole Sodium Sesquihydr (Protonix) 40 Mg Tab, 40 MG PO DAILY, #30 TAB 2 Refills Prov:CHARISSE CRENSHAW MD 03/04/23 Metformin Hydrochloride (Metformin Hcl) 500 Mg Tab, 1 TAB PO BID, #180 TAB 1 Refill Prov:MARIANA PAGE NP 02/21/22 Information Source: Patient Mode of Arrival: Ambulatory Timing: Hours Past Medical History PAST MEDICAL HISTORY: DM, HTN Past Medical History (Other): Pancreatitis Surgical History: Cholecystectomy Family History Family History: Family hx of DM, Family hx of HTN Social History Smoker: Cigarettes, Less Than 1 Pack/Day Alcohol: Heavy Drugs: Denies Drug Use Lives In: Home Was a procedure done? Was a procedure done?: No GI differential Dx Differential Diagnosis: Diverticular disease, Gastritis/PUD, Gastroenteritis, Pancreatitis, Dehydration, Diabetes/ DKA, Food Poisoning X-Ray, Labs, Meds, VS Vital Signs Date Time Temp Pulse Resp B/P (MAP) Pulse Ox O2 Delivery O2 Flow Rate FiO2 11/03/24 04:41 103 18 147/90 11/03/24 02:23 111 16 163/107 (125) 99 11/03/24 01:20 98.4 117 26 151/103 98 98.4 Lab Test 11/03/24 04:30 11/03/24 02:37 11/03/24 02:34 Range/Units POC Glucose 192 H 70-106 mg/dl Hemoglobin A1c 9.5 H <5.7 % A1C White Blood Count 9.8 4.4-10.8 10^3/uL Red Blood Count 4.86 4.5-5.90 10^6/uL Hemoglobin 15.4 13.5-17.5 g/dL Hematocrit 44.8 41.0-53.0 % Mean Corpuscular Volume 92.2 80.0-100.0 fL Mean Corpuscular Hemoglobin 31.7 28.0-32.0 pg Mean Corpuscular Hemoglobin Concent 34.3 32.0-36.0 g/dL Red Cell Distribution Width 14.8 H 11.8-14.3 % Platelet Count 257 140-450 10^3/uL Mean Platelet Volume 8.4 6.9-10.8 fL Neutrophils (%) (Auto) 88.1 H 37.0-80.0 % Lymphocytes (%) (Auto) 8.2 L 10.0-50.0 % Monocytes (%) (Auto) 2.2 0.0-12.0 % Eosinophils (%) (Auto) 0.0 0.0-7.0 % Basophils (%) (Auto) 1.5 0.0-2.0 % Neutrophils # (Auto) 8.6 1.6-8.6 10 ^3/uL Lymphocytes # (Auto) 0.8 0.4-5.4 10 ^3/uL Monocytes # (Auto) 0.2 0-1.3 10 ^3/uL Eosinophils # (Auto) 0 0-0.8 10 ^3/uL Basophils # (Auto) 0.1 0-0.2 10 ^3/uL Nucleated Red Blood Cells 0.0 % Sodium Level 137 136-145 mmol/L Potassium Level 4.0 3.5-5.1 mmol/L Chloride Level 95 L 98-107 mmol/L Carbon Dioxide Level 16 L 20-31 mmol/L Anion Gap 26 H 5-15 Blood Urea Nitrogen 10 9-23 mg/dL Creatinine 0.99 0.700-1.30 mg/dL Glomerular Filtration Rate Calc 99 >90 mL/min BUN/Creatinine Ratio 10.1 10.0-20.0 Serum Glucose 227 H 74-106 mg/dL Calcium Level 10.0 8.7-10.4 mg/dL Magnesium Level 1.6 1.6-2.6 mg/dL Total Bilirubin 1.8 H 0.2-1.0 mg/dL Aspartate Amino Transferase (AST) 57 H 13-40 U/L Alanine Aminotransferase (ALT) 48 H 7-40 U/L Alkaline Phosphatase 136 H 46-116 U/L Total Protein 9.4 H 5.7-8.2 g/dL Albumin 5.6 H 3.2-4.8 g/dL Lipase 29 12-53 U/L Beta-Hydroxybutyric Acid 4.151 H < 0.4 mmol/L Current Medications Medications (Trade) Dose Ordered Sig/Kelley Route Start Time Stop Time Status Last Admin Insulin Human Regular (InsuLIN R) 6 units ONCE ONCE IV 11/03/24 03:45 11/03/24 03:49 DC 11/03/24 04:44 Diagnostic Test (Pha) (Accu-Chek Comfort Curve T) 1 strip ONCE STAT 11/03/24 03:42 11/03/24 03:49 DC 11/03/24 04:44 Ondansetron HCl (Zofran) 4 mg ONCE ONCE IV 11/03/24 04:30 11/03/24 04:31 DC 11/03/24 04:35 Morphine Sulfate 2 mg ONCE ONCE IV 11/03/24 04:30 11/03/24 04:31 DC 11/03/24 04:41 Time of 1ST Reevaluation: 02:24 Reevaluation 1ST: Unchanged Patient Education/Counseling: Need For Follow Up Family Education/Counseling: No Family Present SEPSIS Sepsis Screen Date sepsis recognized/suspect: Nov 03, 2024 Time Sepsis recognized/suspect: 124 Recent Procedure: No On Antibiotic Therapy: No Respiratory Rate >20: No Heart Rate >90: No Temp<36 C (96.8 F) or >38.3 C: No SBP <90 or MAP <65 mmHG: No New Acute Mental Status Change: No Is the patient on CPAP, BIPAP,: No Physician Orders Saline Lock (11/03/24 02:15) Urinalysis (11/03/24 02:15) Vital Signs Date Time Temp Pulse Resp B/P (MAP) Pulse Ox O2 Delivery O2 Flow Rate FiO2 11/03/24 04:41 103 18 147/90 11/03/24 02:23 111 16 163/107 (125) 99 11/03/24 01:20 98.4 117 26 151/103 98 98.4 Laboratory Tests Test 11/03/24 02:34 White Blood Count 9.8 10^3/uL (4.4-10.8) Departure 1 Departure Time of Disposition: 03:43 Impression: Primary Impression: DKA (diabetic ketoacidosis) Disposition: ADMITTED INPATIENT Condition: Stable Comments MDM: 39-year-old male with a history of diabetes presents to the emergency department with nausea, vomiting and abdominal pain Initial evaluation included thorough history, physical examination and appropriate diagnostic testing. Based on the clinical presentation and diagnostic findings, the patient appears to have DKA. IV fluids and insulin bolus initiated in the ED. Given the complexity of the case and need for further management patient is being admitted to the hospitalist service for further monitoring, treatment and evaluation. Risks, benefits and alternatives of admission and proposed interventions were discussed with the patient. Patient is in agreement with the plan. Extensive evaluation was performed in attempt to identify or rule out: (See differential diagnosis section) The following tests were ordered, and results were reviewed by me and discussed with patient: (See diagnostic results section) The following test were independently interpreted by me: N/A I reviewed and agreed with the following test results read by other providers: N/A I reviewed the following notes from the pt's past medical encounters: N/A Additional information was gathered from interviewing the following independent historians: N/A Discussion of management or test interpretation with external physician/other qualified health early breastfeeding care specialist: N/A Addressed an acute or chronic illness that poses a threat to life or bodily function: DKA Decision regarding hospitalization or escalation of hospital level of care: Risk and benefits of admission for further treatment of patient's condition was considered. Due to patient's current clinical condition, high risk of decline and poor outcome if discharged and need for further inpatient management and monitoring, patient will be admitted to the hospital. Discussed with patient. Drug therapy requiring intensive monitoring for toxicity: IV insulin Parenteral controlled substances: N/A Decision regarding elective major surgery with identified patient or procedure risk factors: N/A Decision regarding emergency major surgery: N/A Decision not to resuscitate or to de-escalate care because of poor prognosis: N/A Diagnosis or treatment significantly limited by social determinants of health: N/A Critical Care Note Critical Care Time?: Yes (35 min-critical care time only) Critical care comment: Diabetic ketoacidosis Stability Stability form required: No Heart Score Heart Score: Heart Score Response (Comments) Value History N/A 0 EKG N/A 0 Age N/A 0 Risk Factors N/A 0 Troponin N/A 0 Total 0 I personally scribed for PRAVEEN BERMUDEZ MD ([email or web address]) on 11/03/24 at 02:31. Electronically submitted by Sae Camejo ([email or web address]). I personally scribed for PRAVEEN BERMUDEZ MD ([email or web address]) on 11/03/24 at 04:12. Electronically submitted by Sae Camejo ([email or web address]). PRAVEEN BERMUDEZ MD Nov 03, 2024 02:31
[2024-11-03] MEDS: SODIUM CHLORIDE 0.9% 1,000 ML IV ONE ×2 (02:37→03:29)
[2024-11-03 02:47] LABS: Hematocrit 44.8 % (41.0-53.0); Hemoglobin 15.4 g/dL (13.5-17.5); Mean Corpuscular Hemoglobin 31.7 pg (28.0-32.0); Mean Corpuscular Volume 92.2 fL (80.0-100.0); Nucleated Red Blood Cells % 0.0 %
[2024-11-03] MEDS: METOCLOPRAMIDE HCL 5MG/ml INJ 2ml VIAL IV ONE (02:47)
[2024-11-03] MEDS: diphenhdrAMINE HCL 50 MG/1 ML VL IV ONE (02:48)
[2024-11-03 03:04] LABS: Anion Gap 26 (5-15); BUN/Creatinine Ratio 10.1 (10.0-20.0); Blood Urea Nitrogen 10 mg/dL (9-23); Calcium 10.0 mg/dL (8.7-10.4); Magnesium 1.6 mg/dL (1.6-2.6); Potassium 4.0 mmol/L (3.5-5.1); Sodium 137 mmol/L (136-145)
[2024-11-03 03:05] LABS: Alanine Aminotransferase 48 U/L (7-40); Albumin 5.6 g/dL (3.2-4.8); Alkaline Phosphatase 136 U/L (46-116); Bilirubin, Total 1.8 mg/dL (0.2-1.0); Carbon Dioxide 16 mmol/L (20-31); Chloride 95 mmol/L (98-107); Glucose 227 mg/dL (74-106); Total Protein 9.4 g/dL (5.7-8.2)
[2024-11-03] MEDS ORDERED: DEXTROSE (50%) 50ML SYRG IV PRN ×3 (03:45→07:15)
[2024-11-03] MEDS: ONDANSETRON HCL 4 MG/2 ML VIAL IV ONE (04:35)
[2024-11-03] MEDS: MORPHINE SULFATE INJ 2 MG/ml SYRG IV ONE ×2 (04:41→23:58)
[2024-11-03] MEDS: ACCU-CHEK COMFORT CURVE STRIP VI STA (04:44)
[2024-11-03] MEDS: InsuLIN REG 1unit/0.01ml Soln (100units/ml) IV ONE (04:44)
[2024-11-03] MEDS: SODIUM CHLORIDE 0.9% 1,000 ML IV SCH (05:00)
[2024-11-03] MEDS ORDERED: NITROGLYCERIN 0.4 MG SL TAB SL PRN (05:00)
[2024-11-03] MEDS ORDERED: LORazepam 2MG/ML-1ML VIAL IV PRN (05:00)
--- NOTE | 2024-11-03 05:12 | DVHHP2 ---
WOODROW TUTTLE RESIDENT 11/03/24 0512: History of Present Illness History of Present Illness Patient is 39-year-old male with past medical history of diabetes mellitus on insulin, pancreatitis, hypertension, chronic alcohol user who came to the hospital with a chief complaint of intractable nausea and vomiting, started early around afternoon today 5:00 p.m.. As per patient he is a heavy alcohol drinker, last drink yesterday afternoon 12:00 p.m., 4-5 vodka shots, feeling dizzy, headache, feeling thirsty as well. Also complaining of epigastric pain, 08/03, had at least 5-10 times nausea and vomiting, feeling anxious, mild tremor as well. As per patient he is not compliant with medication specially insulin, last time use insulin 3-4 months ago, as per patient he did have any supply for medication that is why he is not taking medication. Patient denied any other complaints including fever, chills, chest pain, shortness of breath, any other muscular or sensory deficits. Past medical history: diabetes mellitus on insulin, pancreatitis, hypertension, chronic alcohol user Past surgical history: Cholecystectomy Medication: On insulin, does not recall dose of insulin. Last time use three months ago., does not recall any other medication. Personal history: Chronic alcohol user, admitting use of cocaine few days ago. Review of Systems Eyes: No: Pain, Vision change, Conjunctivae inflammation, Eyelid inflammation, Other, Redness ENT: No: Ear pain, Ear discharge, Nose pain, Nose discharge, Nose congestion, Mouth pain, Mouth swelling, Throat pain, Throat swelling, Other Respiratory: No: Cough, Dry, Shortness of breath, SOB with excertion, Wheezing, Hemoptysis, Pleuritic Pain, Sputum, Wheezing, Other Cardiovascular: Lt Headedness; No: Chest Pain, Palpitations, Orthopnea, Paroxysmal Noc. Dyspnea, Edema, Other Gastrointestinal: Nausea, Vomiting, Abdominal Pain Genitourinary: No Dysuria, No Frequency, No Incontinence, No Hematuria, No Rete ntion, No Other Musculoskeletal: No: other, neck pain, shoulder pain, arm pain, back pain, hand pain, leg pain, foot pain Skin: No: Rash, Lesions, Jaundice, Bruising, Other Neurological: No: Weakness, Numbness, Incoordination, Change in speech, Confusion, Seizures, Other Allergies: Coded Allergies: NO KNOWN ALLERGIES (Unverified , 06/09/22) Medications Current Medications Medications Dose Ordered Sig/Kelley Route Start Time Stop Time Status Last Admin Dose Admin Dextrose 50 ml PRN PRN IV 11/03/24 03:45 Dextrose 50 ml PRN PRN IV 11/03/24 03:45 Nitroglycerin 0.4 mg Q5MINP PRN SL 11/03/24 05:00 Morphine Sulfate 2 mg Q30M PRN IV 11/03/24 05:00 Sodium Chloride 1,000 ml @ 150 mls/hr Q6H40M IV 11/03/24 05:00 Pantoprazole Sodium 40 mg DAILY IV 11/04/24 10:00 Ondansetron HCl 4 mg Q4HPRN PRN IV 11/03/24 05:00 UNV Exam Vital Signs Vital Signs Date Time Temp Pulse Resp B/P (MAP) Pulse Ox O2 Delivery O2 Flow Rate FiO2 11/03/24 04:41 103 18 147/90 11/03/24 02:23 99 11/03/24 01:20 98.4 98.4 Exam Patient is feeling anxious, in mild acute distress. General Appearance: Cooperative. Well developed Head Exam: Normal inspection Neck Exam: Normal inspection. Non-tender. Normal alignment Pulmonary/Respiratory: Chest non-tender. Clear bilateral breath sounds Cardiovascular/Chest: Tachycardia, Regular and rhythm. No murmurs. No JVD. Peripheral Pulses: 2+ Radial (R). 2+ Radial (L). 2+ Pedal (R). 2+ Pedal (L) Abdominal Exam: Normal bowel sounds. Soft. Nontender. No hepatospenomegaly. No masses Ankle Exam: Negative ankle edema Lower extremities: Negative lower extremity edema Neuro/Mental Status: A&O x4. Coherent Thoughts/Psych: Normal thought pattern. Appropriate mood and affect. Good judgement and insight Skin Exam: Normal inspection. Normal color. Warm. Dry Labs/Xrays Labs Test 11/03/24 04:30 11/03/24 02:34 Range/Units POC Glucose 192 H 70-106 mg/dl White Blood Count 9.8 4.4-10.8 10^3/uL Red Blood Count 4.86 4.5-5.90 10^6/uL Hemoglobin 15.4 13.5-17.5 g/dL Hematocrit 44.8 41.0-53.0 % Mean Corpuscular Volume 92.2 80.0-100.0 fL Mean Corpuscular Hemoglobin 31.7 28.0-32.0 pg Mean Corpuscular Hemoglobin Concent 34.3 32.0-36.0 g/dL Red Cell Distribution Width 14.8 H 11.8-14.3 % Platelet Count 257 140-450 10^3/uL Mean Platelet Volume 8.4 6.9-10.8 fL Neutrophils (%) (Auto) 88.1 H 37.0-80.0 % Lymphocytes (%) (Auto) 8.2 L 10.0-50.0 % Monocytes (%) (Auto) 2.2 0.0-12.0 % Eosinophils (%) (Auto) 0.0 0.0-7.0 % Basophils (%) (Auto) 1.5 0.0-2.0 % Neutrophils # (Auto) 8.6 1.6-8.6 10 ^3/uL Lymphocytes # (Auto) 0.8 0.4-5.4 10 ^3/uL Monocytes # (Auto) 0.2 0-1.3 10 ^3/uL Eosinophils # (Auto) 0 0-0.8 10 ^3/uL Basophils # (Auto) 0.1 0-0.2 10 ^3/uL Nucleated Red Blood Cells 0.0 % Sodium Level 137 136-145 mmol/L Potassium Level 4.0 3.5-5.1 mmol/L Chloride Level 95 L 98-107 mmol/L Carbon Dioxide Level 16 L 20-31 mmol/L Anion Gap 26 H 5-15 Blood Urea Nitrogen 10 9-23 mg/dL Creatinine 0.99 0.700-1.30 mg/dL Glomerular Filtration Rate Calc 99 >90 mL/min BUN/Creatinine Ratio 10.1 10.0-20.0 Serum Glucose 227 H 74-106 mg/dL Calcium Level 10.0 8.7-10.4 mg/dL Magnesium Level 1.6 1.6-2.6 mg/dL Total Bilirubin 1.8 H 0.2-1.0 mg/dL Aspartate Amino Transferase (AST) 57 H 13-40 U/L Alanine Aminotransferase (ALT) 48 H 7-40 U/L Alkaline Phosphatase 136 H 46-116 U/L Total Protein 9.4 H 5.7-8.2 g/dL Albumin 5.6 H 3.2-4.8 g/dL Beta-Hydroxybutyric Acid 4.151 H < 0.4 mmol/L SEPSIS Sepsis Screen Date sepsis recognized/suspect: Nov 03, 2024 Time Sepsis recognized/suspect: 124 Recent Procedure: No On Antibiotic Therapy: No Respiratory Rate >20: No Heart Rate >90: No Temp<36 C (96.8 F) or >38.3 C: No SBP <90 or MAP <65 mmHG: No New Acute Mental Status Change: No Is the patient on CPAP, BIPAP,: No Physician Orders Saline Lock (11/03/24 02:15) Urinalysis (11/03/24 02:15) Dextrose 50% Syringe (11/03/24 03:45) Dextrose 50% Syringe (11/03/24 03:45) Glucose Blood (Accu-Chek Comfort Curve T (11/03/24 21:15) Admit (11/03/24 04:47) Nitroglycerin Sublingual (Ntrostat Subli (11/03/24 05:00) Morphine Sulfate Injection (11/03/24 05:00) Oxygen By Nasal Cannula (11/03/24 04:47) Stat Ekg For Chest Pain (11/03/24 04:47) Notify Md Of Changes From Base (11/03/24 04:47) Filleter For 24 Hours (11/03/24 04:47) Emergency Dysrhythmia Protocol (11/03/24 04:47) Rhythm Strips Once Every Shift (11/03/24 04:47) Lipase (11/03/24 04:48) Sodium Chloride 0.9% (11/03/24 05:00) Drug Screen (11/03/24 04:48) Pantoprazole (Protonix) (11/04/24 10:00) Pantoprazole (Protonix) (11/03/24 05:00) Magnesium Sulfate 1gm/100ml (11/03/24 05:00) LIVER (11/03/24 04:51) Comprehensive Metabolic Panel (11/03/24 04:53) Blood Alcohol (11/03/24 04:54) Acute Hepatitis Panel (11/03/24 04:54) Troponin-I Hs (11/03/24 04:55) B-Type Natriuretic Peptide (11/03/24 04:55) Chest Xray 1 View (11/03/24 04:55) Lactic Acid W/ Reflex Order (11/03/24 04:55) Echo 2d Mode Cardiac Dop (11/03/24 04:56) Ondansetron Hcl (Zofran) (11/03/24 05:00) Electrocardigram (11/03/24 04:57) Chlordiazepoxide Hcl Capsule (Librium Ca (11/03/24 05:00) Librium 50mg Po Q8hr Day 1 (11/03/24 05:00) Librium 50mg Po Q12hr Day 2 (11/04/24 10:00) Librium 25mg Po Q12hr X Day 3 (11/05/24 10:00) Librium 25mg Po Qam Day 4 (11/06/24 07:00) Lorazepam 2mg/Ml Inj (Ativan Inj) (11/03/24 05:00) Vital Signs Date Time Temp Pulse Resp B/P (MAP) Pulse Ox O2 Delivery O2 Flow Rate FiO2 11/03/24 04:41 103 18 147/90 11/03/24 02:23 111 16 163/107 (125) 99 11/03/24 01:20 98.4 117 26 151/103 98 98.4 Laboratory Tests Test 11/03/24 02:34 White Blood Count 9.8 10^3/uL (4.4-10.8) Medications Medications Dose Ordered Sig/Kelley Route Start Time Stop Time Status Last Admin Dose Admin Diagnostic Test (Pha) 1 strip ONCE STAT 11/03/24 03:42 11/03/24 03:49 DC 11/03/24 04:44 1 STRIP Diphenhydramine HCl 25 mg ONCE ONCE IV 11/03/24 02:15 11/03/24 02:17 DC 11/03/24 02:48 25 MG Insulin Human Regular 6 units ONCE ONCE IV 11/03/24 03:45 11/03/24 03:49 DC 11/03/24 04:44 6 UNITS Metoclopramide HCl 10 mg ONCE ONCE IV 11/03/24 02:15 11/03/24 02:17 DC 11/03/24 02:47 10 MG Morphine Sulfate 2 mg ONCE ONCE IV 11/03/24 04:30 11/03/24 04:31 DC 11/03/24 04:41 2 MG Ondansetron HCl 4 mg ONCE ONCE IV 11/03/24 04:30 11/03/24 04:31 DC 11/03/24 04:35 4 MG Sodium Chloride 1,000 ml @ 1,000 mls/hr Q1H ONCE IV 11/03/24 02:15 11/03/24 03:14 DC 11/03/24 02:37 1,000 MLS/HR Sodium Chloride 1,000 ml @ 1,000 mls/hr Q1H ONCE IV 11/03/24 02:15 11/03/24 03:14 DC 11/03/24 03:29 1,000 MLS/HR Assessment/Plan Assessment/Plan Diabetic ketoacidosis Uncontrolled diabetes mellitus type 2 versus type 1 Severe dehydration Alcohol withdrawal Transaminitis Ketoacidosis likely due to DKA Acute gastritis Intractable nausea and vomiting likely due to DKA/alcohol withdrawal Anion gap metabolic acidosis Rule out acute pancreatitis Hypomagnesemia Cocaine user Plan/recommendation -patient has been given 2 L of IV bolus in emergency department. Continue maintenance normal saline at 125 mL/hour. Patient's BMP showed hyperglycemia with elevated beta hydroxybutyric acid likely related to DKA -patient has been given 6 units of insulin by ED physician. Repeat CMP again. If anion gap is high, patient will need insulin drip. -alcohol withdrawal: CIWA score around 12, patient is anxious, has headache, intractable nausea and vomiting, mild tremor with dizziness. Initiate Librium protocol. Prn Ativan for seizure. Counseled on alcohol cessation. -replenish electrolytes as needed. One bag of 1GM IV magnesium for hypomagnesemia. -cocaine user, counseled on drug cessation. -PUD prophylaxis with Protonix given underlying acute gastritis. Goals of care discussed greater than 24 minutes, full code status. Plan discussed with Dr. Rodriguez Plan discussed with: Patient My Orders Orders - WOODROW TUTTLE Procedure Category Date Status Time Admit ADMIT 11/03/24 Transmitted 04:47 Nitroglycerin PHA 11/03/24 In Process Sublingual (Ntrostat 05:00 Morphine Sulfate PHA 11/03/24 In Process Injection 05:00 Oxygen By Nasal RT 11/03/24 Transmitted Cannula 04:47 Stat Ekg For Chest JAMES 11/03/24 In Process Pain 04:47 Notify Md Of Changes JAMES 11/03/24 In Process From Base 04:47 Filleter For JAMES 11/03/24 In Process 24 Hours 04:47 Emergency Dysrhythmia JAMES 11/03/24 In Process Protocol 04:47 Rhythm Strips Once [facility] 11/03/24 In Process Every Shift 04:47 Lipase LAB 11/03/24 In Process 04:48 Sodium Chloride 0.9% PHA 11/03/24 In Process 05:00 Drug Screen LAB 11/03/24 Logged 04:48 Pantoprazole PHA 11/04/24 In Process (Protonix) 10:00 Pantoprazole PHA 11/03/24 In Process (Protonix) 05:00 Magnesium Sulfate PHA 11/03/24 In Process 1gm/100ml 05:00 LIVER US 11/03/24 Logged 04:51 Comprehensive LAB 11/03/24 Logged Metabolic Panel 04:53 Blood Alcohol LAB 11/03/24 Logged 04:54 Acute Hepatitis Panel LAB 11/03/24 Logged 04:54 Troponin-I Hs LAB 11/03/24 Logged 04:55 B-Type Natriuretic LAB 11/03/24 Logged Peptide 04:55 Chest Xray 1 View XY 11/03/24 Logged 04:55 Lactic Acid W/ Reflex LAB 11/03/24 Logged Order 04:55 Echo 2d Mode Cardiac US 11/03/24 Logged DOP 04:56 Ondansetron Hcl PHA 11/03/24 Logged (Zofran) 05:00 Electrocardigram EKG 11/03/24 Logged 04:57 Chlordiazepoxide Hcl PHA 11/03/24 Logged Capsule (Librium Ca 05:00 Librium 50mg Po Q8hr PHA 11/03/24 Transmitted Day 1 05:00 Librium 50mg Po Q12hr PHA 11/04/24 Transmitted Day 2 10:00 Librium 25mg Po Q12hr PHA 11/05/24 Transmitted X Day 3 10:00 Librium 25mg Po Qam PHA 11/06/24 Transmitted Day 4 07:00 Lorazepam 2mg/Ml Inj PHA 11/03/24 Transmitted (Ativan Inj) 05:00 Date of Service: Nov 03, 2024 Billing Provider: MARY RODRIGUEZ MD Common Visit Codes: [id number] INP/OBS CARE (HIGH) MARISA ALBRIGHT RESIDENT 11/03/24 1656: Review of Systems Allergies: Coded Allergies: NO KNOWN ALLERGIES (Unverified , 06/09/22) SANDRA BACA MD 11/07/24 1607: Date of Service: Nov 03, 2024 Billing Provider: SANDRA BACA MD Common Visit Codes: [id number] INP/OBS CARE(HIGH) WOOD[facility] TUTTLE RESIDENT Nov 03, 2024 05:12 MARISA ALBRIGHT RESIDENT Nov 03, 2024 16:56 SANDRA BACA MD Nov 07, 2024 16:07
--- NOTE | 2024-11-03 05:30 | DVH ---
CHEST RADIOGRAPH Indication: epigastric pain Technique: Single frontal view of the chest was obtained COMPARISON: XY CHEST PORTABLE on DOS: 03/02/23, XY CHEST PORTABLE on DOS: 06/09/22, CHEST XRAY 1 VIEW o n DOS: 02/16/22, CXR1 on DOS: 02/16/22 FINDINGS: Lines and Tubes: None Lungs: Clear Pleura: No effusion. No pneumothorax. Cardiomediastinal contours: Unremarkable Bones: Unremarkable IMPRESSION: 1. No acute disease.
[2024-11-03] MEDS: PANTOPRAZOLE 40 MG/10 ML VIAL INJ IV ONE (05:38)
[2024-11-03 06:09] LABS: Lactic Acid w/Reflex 3.2 mmol/L (0.4-2.0)
[2024-11-03 06:22] LABS: Alanine Aminotransferase 43 U/L (7-40); Albumin 5.3 g/dL (3.2-4.8); Alkaline Phosphatase 119 U/L (46-116); Anion Gap 19 (5-15); BUN/Creatinine Ratio 6.3 (10.0-20.0); Blood Urea Nitrogen 5 mg/dL (9-23); Calcium 9.3 mg/dL (8.7-10.4); Carbon Dioxide 15 mmol/L (20-31); Chloride 103 mmol/L (98-107); Glucose 129 mg/dL (74-106); Potassium 3.7 mmol/L (3.5-5.1); Sodium 137 mmol/L (136-145); Total Protein 8.8 g/dL (5.7-8.2)
[2024-11-03 06:23] LABS: Bilirubin, Total 1.8 mg/dL (0.2-1.0)
[2024-11-03] MEDS: POTASSIUM CHL 20 Meq TABLET PO ONE (07:40)
[2024-11-03 09:31] LABS: Cholesterol 326 mg/dL (< 200); HDL Cholesterol 80 mg/dL (40-59); Triglycerides 187 mg/dL (< 150)
[2024-11-03 10:04] LABS: Chloride 100 mmol/L (98-107); Potassium 3.8 mmol/L (3.5-5.1)
[2024-11-03 10:05] LABS: Anion Gap 16 (5-15); Calcium 9.5 mg/dL (8.7-10.4)
[2024-11-03 10:10] LABS: BUN/Creatinine Ratio 7.1 (10.0-20.0); Blood Urea Nitrogen 6 mg/dL (9-23); Carbon Dioxide 20 mmol/L (20-31); Glucose 153 mg/dL (74-106); Sodium 136 mmol/L (136-145)
[2024-11-03] MEDS: MAGNESIUM SULFATE 1GM/100ML 100 ML IV ONE (11:07)
[2024-11-03] MEDS: ACCU-CHEK COMFORT CURVE STRIP VI SCH (11:30)
[2024-11-03] MEDS: InsuLIN REG 1unit/0.01ml Soln (100units/ml) SC SCH ×2 (11:30→22:00)
--- NOTE | 2024-11-03 11:32 | DVH ---
CLINICAL INFORMATION: Possible cirrhosis. TECHNIQUE: Grayscale sonographic imaging of the right upper quadrant of the abdomen was performed, a ssisted by color Doppler techniques. COMPARISON: US ABDOMEN LIMITED on DOS: 03/03/23, CT CT AB PEL WO CON-NO ORAL OR IV on DOS: 03/03/23, CT CT AB PEL WO CON-NO ORAL OR IV on DOS: 06/09/22 FINDINGS: The gallbladder is surgically absent. The common bile duct measures 2.3 mm in diameter, within normal limits. Mildly increased echogenicity of the liver with mildly coarsened echotexture. Portal vein is patent w ith normal hepatopetal flow. Questionable subtle areas of nodularity in the liver. Liver measures 16 cm in craniocaudal dimension, at the upper limits of normal. Pancreas is partially obscured by bowel gas. The right kidney measures 10.4 cm. There is no hydronephrosis. Right renal cortical echogenicity a nd cortical thickness are within normal limits. IMPRESSION: 1. Mildly increased echogenicity of the liver suggesting fatty infiltration with somewhat coarsened l iver echotexture. Questionable subtle areas of nodularity. Can not exclude cirrhosis. Correlate with clinical findings. 2. Postsurgical changes of prior cholecystectomy. No biliary ductal dilatation.
[2024-11-03 12:10] LABS: Chloride 101 mmol/L (98-107); Potassium 3.8 mmol/L (3.5-5.1); Sodium 137 mmol/L (136-145)
[2024-11-03 12:11] LABS: Anion Gap 17 (5-15); Calcium 9.4 mg/dL (8.7-10.4)
[2024-11-03 12:16] LABS: BUN/Creatinine Ratio 9.3 (10.0-20.0)
[2024-11-03 12:17] LABS: Blood Urea Nitrogen 8 mg/dL (9-23); Carbon Dioxide 19 mmol/L (20-31); Glucose 146 mg/dL (74-106)
[2024-11-03] MEDS: ONDANSETRON HCL 4 MG/2 ML VIAL IV PRN (14:00)
[2024-11-03] MEDS: MORPHINE SULFATE INJ 2 MG/ml SYRG IV PRN (14:02)
[2024-11-03] MEDS: SODIUM CHLORIDE 0.9% 250 ML IV ONE (14:15)
--- NOTE | 2024-11-03 16:22 | DVHPNRES ---
Progress Note Date Seen: Nov 03, 2024 Resident Creating Document: MARISA ALBRIGHT RESIDENT Medical Necessity Reason Pt with a Central, PICC or Fol: No Subjective Review of Systems Patient is 39-year-old male with past medical history of diabetes mellitus on insulin, chronic pancreatitis, hypertension, chronic alcohol user who came to the hospital with a chief complaint of intractable abdominal pain with nausea and vomiting, which started in the evening around 5 pm. The symptoms lasted for around 6-7 hours before the patient was brought to the ER by his brother. The abdominal pain was in the epigastric region, 6/10 in intensity associated with feeling of anxiety and mild tremor as well. As per patient he is a heavy alcohol drinker, last drink was yesterday afternoon 12:00 p.m., 4-5 vodka shots after whcih he felt dizzy, had a headache, and was feeling thirsty as well. As per patient he is not compliant with medication specially insulin, last time use insulin 3-4 months ago, as per patient he did have any supply for medication that is why he is not taking medication. His blood glucose was 448 on admission. Patient denied any other complaints including fever, chills, chest pain, shortness of breath, any other muscular or sensory deficits. The patient still has abdominal pain which is in epigastric area and nonradiating. The patient also has pain in b/l hips and knees. Serum lipase was 30.Mildly increased echogenicity of the liver suggesting fatty infiltration with somewhat coarsened liver echotexture. Questionable subtle areas of nodularity. Can not exclude cirrhosis. Postsurgical changes of prior cholecystectomy. No biliary ductal dilatation. Past medical history: diabetes mellitus on insulin, pancreatitis, hypertension, chronic alcohol user Past surgical history: Cholecystectomy Medication: On insulin, does not recall dose of insulin. Last time used three months ago., does not recall any other medication. smoking: cigarette smoking for 20 years (smoked 2 packs a day for 5-6 years), vaping for 3 years alcohol:heavy binge alcohol drinking pattern drugs:ocassional cocaine use (last on 10/31) Eyes: No: Pain, Vision change, Conjunctivae inflammation, Eyelid inflammation, Other, Redness ENT: No: Ear pain, Ear discharge, Nose pain, Nose discharge, Nose congestion, Mouth pain, Mouth swelling, Throat pain, Throat swelling, Other Respiratory: No: Cough, Dry, Shortness of breath, SOB with excertion, Wheezing, Hemoptysis, Pleuritic Pain, Sputum, Wheezing, Other Cardiovascular: Lt Headedness; No: Chest Pain, Palpitations, Orthopnea, Paroxysmal Noc. Dyspnea, Edema, Other Gastrointestinal: Nausea, Vomiting, Abdominal Pain Genitourinary: No Dysuria, No Frequency, No Incontinence, No Hematuria, No Retention, No Other Musculoskeletal: b/l hip pain, b/l knee pain, No neck pain, shoulder pain, arm pain, back pain, hand pain Skin: No: Rash, Lesions, Jaundice, Bruising, Other Neurological: No: Weakness, Numbness, Incoordination, Change in speech, Confusion, Seizures, Other General Appearance: Cooperative. Well developed, moderate distress Head Exam: Normal inspection Neck Exam: Normal inspection. Non-tender. Normal alignment Pulmonary/Respiratory: Chest non-tender. Clear bilateral breath sounds Cardiovascular/Chest: Tachycardia, Regular and rhythm. No murmurs. No JVD. Peripheral Pulses: 2+ Radial (R). 2+ Radial (L). 2+ Pedal (R). 2+ Pedal (L) Abdominal Exam: Normal bowel sounds. Soft. tenderness in epiigastrium. No hepatospenomegaly. No masses Ankle Exam: Negative ankle edema Lower extremities: Negative lower extremity edema Neuro/Mental Status: A&O x4. Coherent Thoughts/Psych: Normal thought pattern. Appropriate mood and affect. Good judgement and insight Skin Exam: Normal inspection. Normal color. Warm. Dry Objective vital signs Vital Sign Date Time Temp Pulse Resp B/P (MAP) Pulse Ox O2 Delivery O2 Flow Rate FiO2 11/03/24 14:33 78 15 132/71 11/03/24 07:42 98.1 100 98.1 Total Intake and Output 11/02/24 11/02/24 11/03/24 15:00 23:00 07:00 Intake Total 1000 ml Balance 1000 ml medications Current Medications Medications Dose Ordered Sig/Kelley Route Start Time Stop Time Status Last Admin Dose Admin Nitroglycerin 0.4 mg Q5MINP PRN SL 11/03/24 05:00 Morphine Sulfate 2 mg Q30M PRN IV 11/03/24 05:00 11/03/24 14:02 2 MG Sodium Chloride 1,000 ml @ 150 mls/hr Q6H40M IV 11/03/24 05:00 Pantoprazole Sodium 40 mg DAILY IV 11/04/24 10:00 Ondansetron HCl 4 mg Q4HPRN PRN IV 11/03/24 05:00 11/03/24 14:00 4 MG Chlordiazepoxide HCl 50 mg Q8H PO 11/03/24 05:00 11/03/24 21:01 11/03/24 13:53 50 MG Chlordiazepoxide HCl 50 mg Q12HR PO 11/04/24 10:00 11/04/24 22:01 Chlordiazepoxide HCl 25 mg Q12HR PO 11/05/24 10:00 11/05/24 22:01 Chlordiazepoxide HCl 25 mg QAM PO 11/06/24 07:00 11/06/24 07:01 Lorazepam 1 mg Q5MINP PRN IV 11/03/24 05:00 Insulin Glargine 15 units QAM SC 11/04/24 07:00 Diagnostic Test (Pha) 1 strip ACHS 11/03/24 11:30 Insulin Human Regular HS SC 11/03/24 22:00 Insulin Human Regular AC SC 11/03/24 11:30 Dextrose 50 ml UD PRN IV 11/03/24 07:15 laboratory and microbiology Laboratory Tests 11/03/24 11:40 11/03/24 02:34 Test 11/03/24 11:40 Range/Units Serum Glucose 146 H 74-106 mg/dL Labs and/or images reviewed: Labs reviewed by me, Image(s) reviewed by me Problem List/Assessment/Plan Problem List/Assessment/Plan #Ketoacidosis likely due to DKA versus starvation versus alcohol intoxication #Diabetic ketoacidosis (hyperglycemia with elevated beta hydroxybutyric acid) -given 2 L of IV bolus in emergency department, Continued maintenance normal saline at 125 mL/hour -6 units of insulin #Uncontrolled diabetes mellitus type 2. #Severe dehydration #Alcohol withdrawal CIWA score around 12, patient is anxious, has headache, intractable nausea and vomiting, mild tremor with dizziness. Initiate Librium protocol. Prn Ativan for seizure. Counseled on alcohol cessation. Transaminitis #Acute gastritis protonix #Intractable nausea and vomiting likely due to DKA/alcohol withdrawal #Anion gap metabolic acidosis #Rule out acute pancreatitis #Hypomagnesemia 1 bag of iv magnesium #Cocaine user PUD prophylaxis:protonix 40 mg daily iv DVT prophylaxis:not required goals of care discussed with patient for 20 minutes, patient is full code plan discussed with Dr Baca Plan discussed with: Patient Date of Service: Nov 03, 2024 Billing Provider: SANDRA BACA MD Common Visit Codes: [id number] INP/OBS CARE(HIGH) MARISA ALBRIGHT RESIDENT Nov 03, 2024 16:22 MICHAEL GAYTAN RESIDENT Nov 03, 2024 16:38 SANDRA BACA MD Nov 03, 2024 18:30
[2024-11-03 18:59] LABS: Urine Protein, UAD Negative (Negative)
[2024-11-03 19:07] LABS: Amphetamine Screen, Urine Neg (NEGATIVE); Barbiturate Scree,Urine Neg (NEGATIVE); Benzodiazephine Screen, Urine Neg (NEGATIVE); Cocaine Screen, Urine Neg (NEGATIVE); Opiate Scree,Urine Pos (NEGATIVE)
[2024-11-03 19:08] LABS: Cannabinoid Screen, Urine Neg (NEGATIVE); Phencyclidine Screen, Urine Neg (NEGATIVE)
[2024-11-03] MEDS ORDERED: ACCU-CHEK COMFORT CURVE STRIP VI ONE (21:15)
[2024-11-03 23:38] VITALS: BP 139/91; PULSE 75; RESP 18; TEMP 98.1; O2SAT 99
[2024-11-04] VITALS (8 sets, daily range): BP systolic 114–137; BP diastolic 73–93; PULSE 68–88; RESP 16–18; TEMP 97.6–98.4; O2SAT 95–99
[2024-11-04] MEDS: INSULIN LANTUS (GLARGINE) 1 /0.01ml (100units/ml) SC SCH (06:32)
[2024-11-04] MEDS: PANTOPRAZOLE 40 MG/10 ML VIAL INJ IV SCH (09:01)
[2024-11-04] MEDS: FOLIC ACID 1 MG TAB PO SCH (09:03)
[2024-11-04] MEDS: THIAMINE HCL 100 MG TAB PO SCH (09:03)
[2024-11-04 10:04] LABS: Hematocrit 41.3 % (41.0-53.0); Hemoglobin 14.1 g/dL (13.5-17.5); Mean Corpuscular Hemoglobin 31.2 pg (28.0-32.0); Mean Corpuscular Volume 91.5 fL (80.0-100.0); Nucleated Red Blood Cells % 0.1 %
[2024-11-04 10:12] LABS: Hepatitis B Surface Antigen Negative (Negative)
[2024-11-04 10:15] LABS: Chloride 101 mmol/L (98-107); Potassium 3.6 mmol/L (3.5-5.1)
[2024-11-04 10:16] LABS: Anion Gap 11 (5-15); Carbon Dioxide 22 mmol/L (20-31)
[2024-11-04 10:17] LABS: Calcium 9.2 mg/dL (8.7-10.4)
[2024-11-04 10:22] LABS: BUN/Creatinine Ratio 7.2 (10.0-20.0)
[2024-11-04 10:26] LABS: Blood Urea Nitrogen 6 mg/dL (9-23); Glucose 149 mg/dL (74-106); Sodium 134 mmol/L (136-145)
[2024-11-04 10:33] LABS: Hepatitis C Antibody Negative (Negative)
[2024-11-04] MEDS: OPTISON 3ml Vial for INJ IV ONE (12:00)
--- NOTE | 2024-11-04 12:01 | DVHSR ---
APPROVED REPORT EXAM: Two-dimensional and M-mode echocardiogram with Doppler, color Doppler and Optison. Blood Pressure: 134/88 mmHg INDICATION cocaine user Contrast Details Indication: Endocardial border delineation Amount Used: 1ML RISK FACTORS Height: 5'7, Weight: 173 DIMENSIONS LVDd4.6 (3.8-5.7cm)LA (2D)3.2 (1.9-4.0cm)Aortic Root3.1 (2.0-3.7cm) LVDs3.2 (2.5-4.0cm)LA (MM) (1.9-4.0cm)Aortic Cusp Exc1.6 (1.5-2.0cm) EF (%) 60.0 (55-70%)Rt. Atrium2.5 (1.9-4.0cm)Asc. Aorta2.9 cm IVSd0.8 (0.7-1.1cm)RV (D)3.1 (1.8-2.4cm) PWd0.8 (0.7-1.1cm) Mitral Valve MitralMitral Stenosis E wave1.00m/sMV Mean GR.mmHg A wave0.75m/sMV Peak GR.mmHg E/A ratio1.32D MVAcm2 DECEL [id number] 1/2 Timems Aortic Valve Aortic ValveAortic Stenosis V10.93m/Tarah Mean GR.4mmHg V21.25m/Tarah Peak GR.6mmHg LVOT Diameter1.8 (1.8-2.4cm)Doppler AVA1.89cm2 Pulmonic Valve V21.00m/s Tricuspid Valve TR Velocity2.63m/s [id number] Conclusion lvef 60% normal rv function normal biv function normal atria normal pericardium no severe valve abnormalities noted
[2024-11-04] MEDS: POTASSIUM CHL 20 Meq TABLET PO ONE (13:43)
[2024-11-04] MEDS: MORPHINE SULFATE INJ 2 MG/ml SYRG IV PRN (13:44)
--- NOTE | 2024-11-04 14:56 | DVHPNRES ---
Progress Note Date Seen: Nov 04, 2024 Resident Creating Document: MARISA ALBRIGHT RESIDENT Medical Necessity Reason Pt with a Central, PICC or Fol: No Subjective Review of Systems Patient is 39-year-old male with past medical history of diabetes mellitus on insulin, chronic pancreatitis, hypertension, chronic alcohol user who came to the hospital with a chief complaint of intractable abdominal pain with nausea and vomiting, which started in the evening around 5 pm. The symptoms lasted for around 6-7 hours before the patient was brought to the ER by his brother. The abdominal pain was in the epigastric region, 6/10 in intensity associated with feeling of anxiety and mild tremor as well. As per patient he is a heavy alcohol drinker, last drink was yesterday afternoon 12:00 p.m., 4-5 vodka shots after whcih he felt dizzy, had a headache, and was feeling thirsty as well. As per patient he is not compliant with medication specially insulin, last time use insulin 3-4 months ago, as per patient he did have any supply for medication that is why he is not taking medication. His blood glucose was 448 on admission. Patient denied any other complaints including fever, chills, chest pain, shortness of breath, any other muscular or sensory deficits. The patient still has abdominal pain which is in epigastric area and nonradiating. The patient also has pain in b/l hips and knees. Serum lipase was 30. Mildly increased echogenicity of the liver suggesting fatty infiltration with somewhat coarsened liver echotexture. Questionable subtle areas of nodularity. Can not exclude cirrhosis. Postsurgical changes of prior cholecystectomy. No biliary ductal dilatation. The patient reports his abdmonial pain has reduced from 6/10 to 5/10, so we was given morphine for his pain. He tolerated fluids well, so he is being shifted to mechanical soft diet. Past medical history: diabetes mellitus on insulin, pancreatitis, hypertension, chronic alcohol user Past surgical history: Cholecystectomy Medication: On insulin, does not recall dose of insulin. Last time used three months ago., does not recall any other medication. smoking: cigarette smoking for 20 years (smoked 2 packs a day for 5-6 years), vaping for 3 years alcohol:heavy binge alcohol drinking pattern drugs:ocassional cocaine use (last on 10/31) Eyes: No: Pain, Vision change, Conjunctivae inflammation, Eyelid inflammation, Other, Redness ENT: No: Ear pain, Ear discharge, Nose pain, Nose discharge, Nose congestion, Mouth pain, Mouth swelling, Throat pain, Throat swelling, Other Respiratory: No: Cough, Dry, Shortness of breath, SOB with excertion, Wheezing, Hemoptysis, Pleuritic Pain, Sputum, Wheezing, Other Cardiovascular: Lt Headedness; No: Chest Pain, Palpitations, Orthopnea, Paroxysmal Noc. Dyspnea, Edema, Other Gastrointestinal: Nausea, Vomiting, Abdominal Pain Genitourinary: No Dysuria, No Frequency, No Incontinence, No Hematuria, No Retention, No Other Musculoskeletal: b/l hip pain, b/l knee pain, No neck pain, shoulder pain, arm pain, back pain, hand pain Skin: No: Rash, Lesions, Jaundice, Bruising, Other Neurological: No: Weakness, Numbness, Incoordination, Change in speech, Confusion, Seizures, Other General Appearance: Cooperative. Well developed, moderate distress Head Exam: Normal inspection Neck Exam: Normal inspection. Non-tender. Normal alignment Pulmonary/Respiratory: Chest non-tender. Clear bilateral breath sounds Cardiovascular/Chest: Tachycardia, Regular and rhythm. No murmurs. No JVD. Peripheral Pulses: 2+ Radial (R). 2+ Radial (L). 2+ Pedal (R). 2+ Pedal (L) Abdominal Exam: Normal bowel sounds. Soft. tenderness in epiigastrium. No hepatospenomegaly. No masses Ankle Exam: Negative ankle edema Lower extremities: Negative lower extremity edema Neuro/Mental Status: A&O x4. Coherent Thoughts/Psych: Normal thought pattern. Appropriate mood and affect. Good judgement and insight Skin Exam: Normal inspection. Normal color. Warm. Dry Objective vital signs Vital Sign Date Time Temp Pulse Resp B/P (MAP) Pulse Ox O2 Delivery O2 Flow Rate FiO2 11/04/24 13:44 70 18 137/93 11/04/24 13:00 98.4 99 98.4 11/04/24 08:00 Room Air* 0 21 Total Intake and Output 11/03/24 11/03/24 11/04/24 14:59 22:59 06:59 Intake Total 300 ml Balance 300 ml medications Current Medications Medications Dose Ordered Sig/Kelley Route Start Time Stop Time Status Last Admin Dose Admin Nitroglycerin 0.4 mg Q5MINP PRN SL 11/03/24 05:00 Morphine Sulfate 2 mg Q30M PRN IV 11/03/24 05:00 11/03/24 14:02 2 MG Sodium Chloride 1,000 ml @ 150 mls/hr Q6H40M IV 11/03/24 05:00 11/04/24 13:42 150 MLS/HR Pantoprazole Sodium 40 mg DAILY IV 11/04/24 10:00 11/04/24 09:01 40 MG Ondansetron HCl 4 mg Q4HPRN PRN IV 11/03/24 05:00 11/04/24 11:28 4 MG Chlordiazepoxide HCl 50 mg Q12HR PO 11/04/24 10:00 11/04/24 22:01 11/04/24 09:03 50 MG Chlordiazepoxide HCl 25 mg Q12HR PO 11/05/24 10:00 11/05/24 22:01 Chlordiazepoxide HCl 25 mg QAM PO 11/06/24 07:00 11/06/24 07:01 Lorazepam 1 mg Q5MINP PRN IV 11/03/24 05:00 Insulin Glargine 15 units QAM SC 11/04/24 07:00 11/04/24 06:32 15 UNITS Diagnostic Test (Pha) 1 strip ACHS 11/03/24 11:30 11/04/24 06:22 1 STRIP Insulin Human Regular HS SC 11/03/24 22:00 Insulin Human Regular AC SC 11/03/24 11:30 Dextrose 50 ml UD PRN IV 11/03/24 07:15 Folic Acid 1 mg DAILY PO 11/04/24 10:00 11/04/24 09:03 1 MG Thiamine HCl 100 mg DAILY PO 11/04/24 10:00 11/04/24 09:03 100 MG Morphine Sulfate 1 mg Q6HP PRN IV 11/04/24 13:30 11/04/24 13:44 1 MG laboratory and microbiology Laboratory Tests 11/04/24 09:39 Test 11/04/24 09:39 Range/Units Serum Glucose 149 H 74-106 mg/dL Labs and/or images reviewed: Labs reviewed by me, Image(s) reviewed by me Problem List/Assessment/Plan Problem List/Assessment/Plan #Ketoacidosis likely due to DKA versus starvation versus alcohol intoxication #Diabetic ketoacidosis (hyperglycemia with elevated beta hydroxybutyric acid) -given 2 L of IV bolus in emergency department, Continued maintenance normal saline at 125 mL/hour -6 units of insulin #Uncontrolled diabetes mellitus type 2. #Severe dehydration #Alcohol withdrawal CIWA score around 12, patient is anxious, has headache, intractable nausea and vomiting, mild tremor with dizziness. Initiate Librium protocol. Prn Ativan for seizure. Counseled on alcohol cessation. Transaminitis #Acute gastritis protonix #Intractable nausea and vomiting likely due to DKA/alcohol withdrawal #Anion gap metabolic acidosis #Rule out acute pancreatitis #Hypomagnesemia 1 bag of iv magnesium #Cocaine user #fatty liver #medication non compliance PUD prophylaxis:protonix 40 mg daily iv DVT prophylaxis:not required goals of care discussed with patient for 20 minutes, patient is full code plan discussed with Dr Maynard Plan discussed with: Patient My Orders My Orders Orders - MARISA ALBRIGHT RESIDENT Procedure Category Date Status Time Morphine Sulfate PHA 11/04/24 In Process Injection 13:30 Date of Service: Nov 04, 2024 Billing Provider: CHARISSE MAYNARD MD Common Visit Codes: [id number] INP/OBS CARE(HIGH) MARISA ALBRIGHT RESIDENT Nov 04, 2024 14:56 CHARISSE MAYNARD MD Nov 09, 2024 20:07
[2024-11-05] VITALS (8 sets, daily range): BP systolic 108–127; BP diastolic 72–91; PULSE 65–86; RESP 16–17; TEMP 97.4–98.6; O2SAT 95–99
[2024-11-05 07:19] LABS: Hematocrit 42.7 % (41.0-53.0); Hemoglobin 14.8 g/dL (13.5-17.5); Mean Corpuscular Hemoglobin 32.0 pg (28.0-32.0); Mean Corpuscular Volume 92.0 fL (80.0-100.0); Nucleated Red Blood Cells % 0.0 %
[2024-11-05 07:27] LABS: Chloride 102 mmol/L (98-107); Potassium 3.5 mmol/L (3.5-5.1); Sodium 136 mmol/L (136-145)
[2024-11-05 07:28] LABS: Anion Gap 11 (5-15); Calcium 9.6 mg/dL (8.7-10.4); Carbon Dioxide 23 mmol/L (20-31)
[2024-11-05 07:33] LABS: BUN/Creatinine Ratio 7.1 (10.0-20.0); Glucose 84 mg/dL (74-106)
[2024-11-05 07:34] LABS: Blood Urea Nitrogen 6 mg/dL (9-23)
--- NOTE | 2024-11-05 15:57 | DVHPNRES ---
Progress Note Date Seen: Nov 05, 2024 Resident Creating Document: MARISA ALBRIGHT RESIDENT Medical Necessity Reason Pt with a Central, PICC or Fol: No Subjective Review of Systems Patient is 39-year-old male with past medical history of diabetes mellitus on insulin, chronic pancreatitis, hypertension, chronic alcohol user who came to the hospital with a chief complaint of intractable abdominal pain with nausea and vomiting, which started in the evening around 5 pm. The symptoms lasted for around 6-7 hours before the patient was brought to the ER by his brother. The abdominal pain was in the epigastric region, 6/10 in intensity associated with feeling of anxiety and mild tremor as well. As per patient he is a heavy alcohol drinker, last drink was yesterday afternoon 12:00 p.m., 4-5 vodka shots after whcih he felt dizzy, had a headache, and was feeling thirsty as well. As per patient he is not compliant with medication specially insulin, last time use insulin 3-4 months ago, as per patient he did have any supply for medication that is why he is not taking medication. His blood glucose was 448 on admission. Patient denied any other complaints including fever, chills, chest pain, shortness of breath, any other muscular or sensory deficits. The patient still has abdominal pain which is in epigastric area and nonradiating. The patient also has pain in b/l hips and knees. Serum lipase was 30. Mildly increased echogenicity of the liver suggesting fatty infiltration with somewhat coarsened liver echotexture. Questionable subtle areas of nodularity. Can not exclude cirrhosis. Postsurgical changes of prior cholecystectomy. No biliary ductal dilatation. The patient reports his abdmonial pain has reduced from 6/10 to 5/10, so we was given morphine for his pain. He tolerated fluids well, so he is being shifted to mechanical soft diet.The patient tolerated carb consistent diet and telemetry was discontinued Past medical history: diabetes mellitus on insulin, pancreatitis, hypertension, chronic alcohol user Past surgical history: Cholecystectomy Medication: On insulin, does not recall dose of insulin. Last time used three months ago., does not recall any other medication. smoking: cigarette smoking for 20 years (smoked 2 packs a day for 5-6 years), vaping for 3 years alcohol:heavy binge alcohol drinking pattern drugs:ocassional cocaine use (last on 8/7) Eyes: No: Pain, Vision change, Conjunctivae inflammation, Eyelid inflammation, Other, Redness ENT: No: Ear pain, Ear discharge, Nose pain, Nose discharge, Nose congestion, Mouth pain, Mouth swelling, Throat pain, Throat swelling, Other Respiratory: No: Cough, Dry, Shortness of breath, SOB with excertion, Wheezing, Hemoptysis, Pleuritic Pain, Sputum, Wheezing, Other Cardiovascular: Lt Headedness; No: Chest Pain, Palpitations, Orthopnea, Paroxysmal Noc. Dyspnea, Edema, Other Gastrointestinal: Nausea, Vomiting, Abdominal Pain Genitourinary: No Dysuria, No Frequency, No Incontinence, No Hematuria, No Retention, No Other Musculoskeletal: b/l hip pain, b/l knee pain, No neck pain, shoulder pain, arm pain, back pain, hand pain Skin: No: Rash, Lesions, Jaundice, Bruising, Other Neurological: No: Weakness, Numbness, Incoordination, Change in speech, Confusion, Seizures, Other General Appearance: Cooperative. Well developed, moderate distress Head Exam: Normal inspection Neck Exam: Normal inspection. Non-tender. Normal alignment Pulmonary/Respiratory: Chest non-tender. Clear bilateral breath sounds Cardiovascular/Chest: Tachycardia, Regular and rhythm. No murmurs. No JVD. Peripheral Pulses: 2+ Radial (R). 2+ Radial (L). 2+ Pedal (R). 2+ Pedal (L) Abdominal Exam: Normal bowel sounds. Soft. tenderness in epigastrium. No hepatospenomegaly. No masses Ankle Exam: Negative ankle edema Lower extremities: Negative lower extremity edema Neuro/Mental Status: A&O x4. Coherent Thoughts/Psych: Normal thought pattern. Appropriate mood and affect. Good judgement and insight Skin Exam: Normal inspection. Normal color. Warm. Dry Objective vital signs Vital Sign Date Time Temp Pulse Resp B/P (MAP) Pulse Ox O2 Delivery O2 Flow Rate FiO2 11/05/24 13:00 97.7 67 16 121/85 (97) 99 97.7 11/05/24 08:00 Room Air* 0 21 Total Intake and Output 11/04/24 11/04/24 11/05/24 15:00 23:00 07:00 Intake Total 850 ml 480 ml Balance 850 ml 480 ml medications Current Medications Medications Dose Ordered Sig/Kelley Route Start Time Stop Time Status Last Admin Dose Admin Nitroglycerin 0.4 mg Q5MINP PRN SL 11/03/24 05:00 Morphine Sulfate 2 mg Q30M PRN IV 11/03/24 05:00 11/03/24 14:02 2 MG Sodium Chloride 1,000 ml @ 150 mls/hr Q6H40M IV 11/03/24 05:00 11/04/24 21:28 150 MLS/HR Pantoprazole Sodium 40 mg DAILY IV 11/04/24 10:00 11/05/24 09:44 40 MG Ondansetron HCl 4 mg Q4HPRN PRN IV 11/03/24 05:00 11/05/24 09:44 4 MG Chlordiazepoxide HCl 25 mg Q12HR PO 11/05/24 10:00 11/05/24 22:01 11/05/24 09:44 25 MG Chlordiazepoxide HCl 25 mg QAM PO 11/06/24 07:00 11/06/24 07:01 Lorazepam 1 mg Q5MINP PRN IV 11/03/24 05:00 Insulin Glargine 15 units QAM SC 11/04/24 07:00 11/05/24 06:04 15 UNITS Diagnostic Test (Pha) 1 strip ACHS 11/03/24 11:30 11/05/24 11:29 1 STRIP Insulin Human Regular HS SC 11/03/24 22:00 11/04/24 21:37 4 UNITS Insulin Human Regular AC SC 11/03/24 11:30 11/05/24 11:29 3 UNITS Dextrose 50 ml UD PRN IV 11/03/24 07:15 Folic Acid 1 mg DAILY PO 11/04/24 10:00 11/05/24 09:44 1 MG Thiamine HCl 100 mg DAILY PO 11/04/24 10:00 11/05/24 09:44 100 MG Morphine Sulfate 1 mg Q6HP PRN IV 11/04/24 13:30 11/05/24 09:45 1 MG laboratory and microbiology Laboratory Tests 11/05/24 06:41 Test 11/05/24 06:41 Range/Units Serum Glucose 84 74-106 mg/dL Labs and/or images reviewed: Labs reviewed by me, Image(s) reviewed by me Problem List/Assessment/Plan Problem List/Assessment/Plan #Ketoacidosis likely due to DKA versus starvation versus alcohol intoxication #Diabetic ketoacidosis (hyperglycemia with elevated beta hydroxybutyric acid) -given 2 L of IV bolus in emergency department, Continued maintenance normal saline at 125 mL/hour -6 units of insulin #Uncontrolled diabetes mellitus type 2. #Severe dehydration #Alcohol withdrawal CIWA score around 12, patient is anxious, has headache, intractable nausea and vomiting, mild tremor with dizziness. Initiate Librium protocol. Prn Ativan for seizure. Counseled on alcohol cessation. Transaminitis #Acute gastritis protonix #Intractable nausea and vomiting likely due to DKA/alcohol withdrawal #Anion gap metabolic acidosis #Rule out acute pancreatitis #Hypomagnesemia 1 bag of iv magnesium #Cocaine user #fatty liver #medication non compliance PUD prophylaxis:protonix 40 mg daily iv DVT prophylaxis:not required goals of care discussed with patient for 20 minutes, patient is full code plan discussed with Dr Maynard Plan discussed with: Patient My Orders My Orders Orders - MARISA ALBRIGHT RESIDENT Procedure Category Date Status Time Consistent DIET 11/05/24 Transmitted Carb(Ccho)Diabetes Lunch Complete Blood Count LAB 11/06/24 Verified 04:00 Basic Metabolic Panel LAB 11/06/24 Verified 04:00 Dietary Evaluation Review Comments: 1) Refer Pay Station Attendant for diabetes education 2) Monitor PO intake, lab values, wt trends, skin trends Expected Outcomes/Goals: GI symptoms to improve Lab values to improve Fu 3-5 days Date of Service: Nov 05, 2024 Billing Provider: CHARISSE MAYNARD MD Common Visit Codes: [id number] INP/OBS CARE(HIGH) MARISA ALBRIGHT RESIDENT Nov 05, 2024 15:57 CHARISSE MAYNARD MD Nov 09, 2024 20:08
[2024-11-06 00:26] VITALS: BP 110/67; PULSE 57; RESP 17; TEMP 97.7; O2SAT 98
[2024-11-06 04:36] VITALS: BP 127/78; PULSE 77; RESP 16; TEMP 97.3; O2SAT 98
[2024-11-06 07:19] LABS: Chloride 103 mmol/L (98-107); Potassium 3.7 mmol/L (3.5-5.1); Sodium 136 mmol/L (136-145)
[2024-11-06 07:20] LABS: Anion Gap 11 (5-15); Calcium 9.7 mg/dL (8.7-10.4); Carbon Dioxide 22 mmol/L (20-31)
[2024-11-06 07:25] LABS: BUN/Creatinine Ratio 10.0 (10.0-20.0)
[2024-11-06 07:27] LABS: Blood Urea Nitrogen 8 mg/dL (9-23); Glucose 153 mg/dL (74-106)
[2024-11-06 08:00] VITALS: PULSE 76; RESP 18
[2024-11-06 09:00] VITALS: BP 122/80; PULSE 76; RESP 18; TEMP 98.6; O2SAT 99
[2024-11-06 09:48] LABS: Hematocrit 37.4 % (41.0-53.0); Hemoglobin 12.7 g/dL (13.5-17.5); Mean Corpuscular Hemoglobin 31.2 pg (28.0-32.0); Mean Corpuscular Volume 91.6 fL (80.0-100.0); Nucleated Red Blood Cells % 0.0 %
--- NOTE | 2024-11-06 11:45 | DVHDSRES ---
Discharge Summary Date of Admission Resident Creating Document: MARISA ALBRIGHT RESIDENT Nov 03, 2024 at 04:47 Date of Discharge: Nov 06, 2024 Admitting Diagnosis DKA Labs/Diagnostic Data: Laboratory Results Test 11/06/24 09:06 11/06/24 07:14 11/06/24 06:27 11/03/24 18:36 White Blood Count 5.9 10^3/uL (4.4-10.8) Red Blood Count 4.08 10^6/uL (4.5-5.90) Hemoglobin 12.7 g/dL (13.5-17.5) Hematocrit 37.4 % (41.0-53.0) Mean Corpuscular Volume 91.6 fL (80.0-100.0) Mean Corpuscular Hemoglobin 31.2 pg (28.0-32.0) Mean Corpuscular Hemoglobin Concent 34.1 g/dL (32.0-36.0) Red Cell Distribution Width 14.4 % (11.8-14.3) Platelet Count 103 10^3/uL (140-450) Mean Platelet Volume 8.9 fL (6.9-10.8) Neutrophils (%) (Auto) 73.4 % (37.0-80.0) Lymphocytes (%) (Auto) 19.8 % (10.0-50.0) Monocytes (%) (Auto) 4.8 % (0.0-12.0) Eosinophils (%) (Auto) 1.5 % (0.0-7.0) Basophils (%) (Auto) 0.5 % (0.0-2.0) Neutrophils # (Auto) 4.3 10 ^3/uL (1.6-8.6) Lymphocytes # (Auto) 1.2 10 ^3/uL (0.4-5.4) Monocytes # (Auto) 0.3 10 ^3/uL (0-1.3) Eosinophils # (Auto) 0.1 10 ^3/uL (0-0.8) Basophils # (Auto) 0 10 ^3/uL (0-0.2) Nucleated Red Blood Cells 0.0 % POC Glucose 141 mg/dl (70-106) Sodium Level 136 mmol/L (136-145) Potassium Level 3.7 mmol/L (3.5-5.1) Chloride Level 103 mmol/L (98-107) Carbon Dioxide Level 22 mmol/L (20-31) Anion Gap 11 (5-15) Blood Urea Nitrogen 8 mg/dL (9-23) Creatinine 0.80 mg/dL (0.700-1.30) Glomerular Filtration Rate Calc 115 mL/min (>90) BUN/Creatinine Ratio 10.0 (10.0-20.0) Serum Glucose 153 mg/dL (74-106) Calcium Level 9.7 mg/dL (8.7-10.4) Urine Color Light-orange (Yellow) Urine Clarity Clear (Clear) Urine pH 6.0 (5.0-9.0) Urine Specific [place] 1.018 (1.001-1.035) Urine Protein Negative (Negative) Urine Ketones 3+ (Negative) Urine Blood Negative /uL (Negative) Urine Nitrite Negative (Negative) Urine Bilirubin Negative (Negative) Urine Urobilinogen Normal mg/dL (Negative) Urine Leukocyte Esterase Negative /uL (Negative) Urine Glucose Normal mg/dL (Normal) Urine Opiates Screen Pos (NEGATIVE) Urine Fentanyl Screen Neg (NEGATIVE) Urine Barbiturates Screen Neg (NEGATIVE) Urine Phencyclidine Screen Neg (NEGATIVE) Urine Amphetamines Screen Neg (NEGATIVE) Urine Benzodiazepines Screen Neg (NEGATIVE) Urine Cocaine Screen Neg (NEGATIVE) Urine Cannabinoids Screen Neg (NEGATIVE) Test 11/03/24 15:33 11/03/24 09:47 11/03/24 05:20 11/03/24 02:37 Lactic Acid Level 1.1 mmol/L (0.4-2.0) Lipase 30 U/L (12-53) Total Bilirubin 1.8 mg/dL (0.2-1.0) Aspartate Amino Transferase (AST) 54 U/L (13-40) Alanine Aminotransferase (ALT) 43 U/L (7-40) Alkaline Phosphatase 119 U/L (46-116) Troponin I High Sensitivity < 3 ng/L (</=54) B-Type Natriuretic Peptide 6.01 pg/mL (0-100) Total Protein 8.8 g/dL (5.7-8.2) Albumin 5.3 g/dL (3.2-4.8) Triglycerides Level 187 mg/dL (< 150) Cholesterol Level 326 mg/dL (< 200) LDL Cholesterol 242 mg/dL (< 100) HDL Cholesterol 80 mg/dL (40-59) Thyroid Stimulating Hormone (TSH) 0.58 uIU/mL (0.55-4.78) Plasma/Serum Blood Alcohol < 3.0 mg/dL (<10) Hepatitis A IgM Antibody Negative Hepatitis B Surface Antigen Negative (Negative) Hepatitis B Core IgM Antibody Negative (Negative) Hepatitis C Antibody Negative (Negative) Hemoglobin A1c 9.5 % A1C (<5.7) Test 11/03/24 02:34 Magnesium Level 1.6 mg/dL (1.6-2.6) Beta-Hydroxybutyric Acid 4.151 mmol/L (< 0.4) Other Laboratory Tests 11/06/24 09:06 11/06/24 06:27 Brief Hx & Hospital Course: Patient is 39-year-old male with past medical history of diabetes mellitus on insulin, chronic pancreatitis, hypertension, chronic alcohol user who came to the hospital with a chief complaint of intractable abdominal pain with nausea and vomiting, which started in the evening around 5 pm. The symptoms lasted for around 6-7 hours before the patient was brought to the ER by his brother. The abdominal pain was in the epigastric region, 6/10 in intensity associated with feeling of anxiety and mild tremor as well. As per patient he is a heavy alcohol drinker, last drink was yesterday afternoon 12:00 p.m., 4-5 vodka shots after whcih he felt dizzy, had a headache, and was feeling thirsty as well. As per patient he is not compliant with medication specially insulin, last time use insulin 3-4 months ago, as per patient he did have any supply for medication that is why he is not taking medication. His blood glucose was 448 on admission. Patient denied any other complaints including fever, chills, chest pain, shortness of breath, any other muscular or sensory deficits. The patient still has abdominal pain which is in epigastric area and nonradiating. The patient also has pain in b/l hips and knees. Serum lipase was 30. Mildly increased echogenicity of the liver suggesting fatty infiltration with somewhat coarsened liver echotexture. Questionable subtle areas of nodularity. Can not exclude cirrhosis. Postsurgical changes of prior cholecystectomy. No biliary ductal dilatation. The patient reports his abdmonial pain has reduced from 6/10 to 5/10, so we was given morphine for his pain. He tolerated fluids well, so he is being shifted to mechanical soft diet.The patient tolerated carb consistent diet and telemetry was discontinued. Past medical history: diabetes mellitus on insulin, pancreatitis, hypertension, chronic alcohol user Past surgical history: Cholecystectomy Medication: On insulin, does not recall dose of insulin. Last time used three months ago., does not recall any other medication. smoking: cigarette smoking for 20 years (smoked 2 packs a day for 5-6 years), vaping for 3 years alcohol:heavy binge alcohol drinking pattern drugs:ocassional cocaine use (last on 10/31) Eyes: No: Pain, Vision change, Conjunctivae inflammation, Eyelid inflammation, Other, Redness ENT: No: Ear pain, Ear discharge, Nose pain, Nose discharge, Nose congestion, Mouth pain, Mouth swelling, Throat pain, Throat swelling, Other Respiratory: No: Cough, Dry, Shortness of breath, SOB with excertion, Wheezing, Hemoptysis, Pleuritic Pain, Sputum, Wheezing, Other Cardiovascular: Lt Headedness; No: Chest Pain, Palpitations, Orthopnea, Paroxysmal Noc. Dyspnea, Edema, Other Gastrointestinal: mild Nausea, Vomiting, mild Abdominal Pain Genitourinary: No Dysuria, No Frequency, No Incontinence, No Hematuria, No Retention, No Other Musculoskeletal: b/l hip pain, b/l knee pain, No neck pain, shoulder pain, arm pain, back pain, hand pain Skin: No: Rash, Lesions, Jaundice, Bruising, Other Neurological: No: Weakness, Numbness, Incoordination, Change in speech, Confusion, Seizures, Other General Appearance: Cooperative. Well developed, Head Exam: Normal inspection Neck Exam: Normal inspection. Non-tender. Normal alignment Pulmonary/Respiratory: Chest non-tender. Clear bilateral breath sounds Cardiovascular/Chest: Tachycardia, Regular and rhythm. No murmurs. No JVD. Peripheral Pulses: 2+ Radial (R). 2+ Radial (L). 2+ Pedal (R). 2+ Pedal (L) Abdominal Exam: Normal bowel sounds. Soft. tenderness in epigastrium. No hepatospenomegaly. No masses Ankle Exam: Negative ankle edema Lower extremities: Negative lower extremity edema Neuro/Mental Status: A&O x4. Coherent Thoughts/Psych: Normal thought pattern. Appropriate mood and affect. Good judgement and insight Skin Exam: Normal inspection. Normal color. Warm. Dry Condition at Discharge: Stable Final Diagnosis/Problems List Ketoacidosis likely due to DKA versus starvation versus alcohol intoxication Diabetic ketoacidosis (hyperglycemia with elevated beta hydroxybutyric acid) Uncontrolled diabetes mellitus type 2. Severe dehydration Alcohol withdrawal CIWA score around 12 Transaminitis Acute gastritis Intractable nausea and vomiting likely due to DKA/alcohol withdrawal Anion gap metabolic acidosis Hypomagnesemia Cocaine user fatty liver medication non compliance Discharge Disposition: Home Discharge Instruct/Medications Diet: Consistent carbohydrate Activity: No Restrictions, As Tolerated Follow Up/Referral: -FOLLOW UP IN [facility] IN 1 WEEK Medications: SEE PRSCRIPTION Scheduled Insulin Aspart (Insulin Aspart Flexpen), 100 UNIT SC TIDWMEALS Insulin Glargine (Lantus Solostar), 100 UNIT SC QAM Metformin Hydrochloride (Metformin Hcl), 1 TAB PO BID Pantoprazole Sodium Sesquihydr (Protonix), 40 MG PO DAILY Sucralfate (Carafate), 1 GM OR QIDACHS Scheduled PRN Chlordiazepoxide Hcl (Librium), 25 MG PO Q6HPRN PRN Durable Medical Equipment Blood Glucose Monitoring Suppl (D-Care Glucometer Kit/Glu W/Device), KIT XX TIDWM, (DME) Isopropyl Alcohol (Alcohol Prep Pad), BOX XX TIDWMEALS, (DME) Lancets (Freestyle Lancets), BOX XX TIDWMEALS, (DME) Discharge Statement: "Patient was advised to return to the ER or call 911 if any headaches, dizziness, shortness of breath, chest pain, abdominal pain, bleeding, fevers, or worsening of medical condition. Patient was counseled about treatment plan, medications, possible side effects, patientverbalized understanding. All questions were answered to the best of my ability. This discharge took greater then 30 minutes in planning, reviewing documentation, counseling the patient, and discussing with other team members." ASSESSMENT ASSESSMENT Assessment Ketoacidosis likely due to DKA versus starvation versus alcohol intoxication Date of Service: Nov 06, 2024 Billing Provider: CHARISSE CRENSHAW MD Common Visit Codes: [id number] DISCH DAY >30min YUVALBLANCAMARISA SOLISUR RESIDENT Nov 06, 2024 11:45 CHARISSE CRENSHAW MD Nov 09, 2024 20:08
[2024-11-06] MEDS ORDERED: INSUINJ37 SC (11:46)
[2024-11-06] MEDS ORDERED: BLOO1KIT60 XX (11:46)
[2024-11-06] MEDS ORDERED: LANC-347 XX (11:46)
[2024-11-06] MEDS ORDERED: INSU100I51 SC (11:46)
[2024-11-06] MEDS ORDERED: ALCO70PA28 XX (11:46)
[2024-11-06 12:39] VITALS: TEMP 37
[2024-11-06 13:00] VITALS: BP_SYST 115; BP_SYST 118; BP_DIAS 64; BP_DIAS 83; PULSE 79; PULSE 86; RESP 18; TEMP 97.3; TEMP 98; O2SAT 91
== END 2024-11-06 15:20 | disposition home or self-care (01) | DRG 420 ==
LOC: ER 01:19 → OVERFLOW 04:47 → TELE-WESTW 22:12 → WEST WING 11-06 01:19
PROVIDERS: ADMIT Internal Medicine Geriatric Medicine; ATTEND Internal Medicine Geriatric Medicine
DX: E11.10 Type 2 diabetes mellitus with ketoacidosis without coma (principal); K76.0 Fatty (change of) liver, not elsewhere classified; E83.42 Hypomagnesemia; E86.0 Dehydration; K29.00 Acute gastritis without bleeding; I10 Essential (primary) hypertension; F17.210 Nicotine dependence, cigarettes, uncomplicated; F14.90 Cocaine use, unspecified, uncomplicated; R74.01 Elevation of levels of liver transaminase levels; T73.0XXA Starvation, initial encounter; F10.129 Alcohol abuse with intoxication, unspecified; Z79.84 Long term (current) use of oral hypoglycemic drugs; Z83.3 Family history of diabetes mellitus; Z79.4 Long term (current) use of insulin; Z82.49 Family history of ischemic heart disease and other diseases of the circulatory system; Z90.49 Acquired absence of other specified parts of digestive tract; Z91.148 Patient's other noncompliance with medication regimen for other reason; X58.XXXA Exposure to other specified factors, initial encounter; Y90.9 Presence of alcohol in blood, level not specified
CPT/HCPCS: 36415; 71045; 76705; 80048; 80053; 80061; 80074; 80307; 80320; 81003; 82010; 82962; 83036; 83605; 83690; 83735; 83880; 84443; 84484; 85025; 93306; 96361; 96374; 96375; G0378; J1815; J2405; J2470; Q9956